=== PATIENT | female | born 1945 | race Caucasian/White ===

== ENCOUNTER 2020-11-09 20:06 | Inpatient (IN) | payer MEDICARE, SELFPAY ==
--- NOTE | ~2020-11-09 | CT_ITS ---
EXAMINATION: CT ABDOMEN AND PELVIS WITHOUT CONTRAST CLINICAL INFORMATION: Right lower quadrant pain. Distended. Rule out diverticulitis, small bowel obstruction. History of appendectomy, VANESSA, left nephrectomy COMPARISON: None TECHNIQUE: Multidetector volumetric imaging was performed from the superior aspect of the liver through the pubic symphysis. Sagittal and coronal reformatted images were obtained on the technologist's workstation. This CT examination was performed using dose optimization techniques as appropriate, variously including the following: *Automated exposure control *Adjustment of mA and/or kV according to patient size (this includes techniques or standardized protocols for targeted exams where dose is matched to indication/reason for exam; i.e. extremities or head) *Use of iterative reconstruction technique DLP: 361 mGy-cm FINDINGS: LUNG BASES: Minimal atelectasis. No acute findings. LIVER, GALLBLADDER, AND BILIARY TREE: A 1.7 cm water density (5 Hounsfield units) cyst is present within the posteromedial aspect of the hepatic segment 7. There is a 0.9 cm low-density (12 ounces) cysts within segment 4A . A 1.7 cm cystic lesion with lobular margins is present within segment 5 with a density of 10 Hounsfield units, likely a cyst or hemangioma. Liver is normal in size. Contour is normal. The gallbladder is unremarkable with no evidence of radiopaque gallstones, gallbladder wall thickening, or obvious pericholecystic inflammatory changes. PANCREAS: Unremarkable. SPLEEN: Unremarkable. ADRENAL GLANDS: Left adrenal gland appears surgically absent. Right adrenal gland is normal KIDNEYS AND URETERS: Left kidney is surgically absent. There is moderate right-sided hydronephrosis and hydroureter with significant perinephric and proximal periureteral fat stranding. A 3 mm calculus is present at the right UVJ, producing this obstructive uropathy. No additional renal or ureteral calculi are identified. Right kidney is normal in size and normal cortical thickness. There is a 1 cm density (50 Hounsfield unit) cystic focus in the lateral cortex of the right lower renal pole. No additional renal lesions are identified. BLADDER: Empty. No wall thickening. GASTROINTESTINAL TRACT: Small sliding-type hiatal hernia. Stomach, small bowel, and colon are normal in caliber. There is mild to moderate sigmoid diverticulosis. No evidence of acute diverticulitis. No intraperitoneal free fluid or free air. ABDOMINAL WALL: No significant hernia is appreciated. LYMPH NODES: Normal. VASCULAR: Atherosclerotic calcifications are present in the abdominal aorta and iliac arteries. No aneurysmal dilatation. PELVIC VISCERA: Uterus is surgically absent. There is a 1.2 cm water density cyst at the left ovary. OSSEOUS STRUCTURES: There is grade 1 anterolisthesis of L4 on L5 with mild to moderate degenerative disc disease marked facet arthropathy. Mild to moderate multilevel degenerative disc disease present throughout the lumbar spine, most notably at L2-L3. No acute osseous findings in the hips and SI joints. CT/CT abdomen pelvis wo con IMPRESSION: 1. A 3 mm calculus at the right UVJ produces moderate right obstructive uropathy with significant perinephric stranding. 2. A 1 cm intermediate density cystic focus at the right kidney. Recommend follow-up renal protocol MRI with and without contrast on a nonemergent basis. Cystic lesions within the liver could also be assessed at that time. 3. A 1.3 cm left ovarian cyst, abnormal in the postmenopausal setting. Follow-up pelvic ultrasound is advised on a nonemergent basis 4. Small sliding-type hiatal hernia.
--- NOTE | ~2020-11-09 | CT_ITS ---
EXAMINATION: CT ABDOMEN AND PELVIS WITHOUT CONTRAST CLINICAL INFORMATION: Kidney stones. Right-sided abdominal pain COMPARISON: November 09, 2020 TECHNIQUE: Multidetector volumetric imaging was performed from the superior aspect of the liver through the pubic symphysis. Sagittal and coronal reformatted images were obtained on the technologist's workstation. This CT examination was performed using dose optimization techniques as appropriate, variously including the following: *Automated exposure control *Adjustment of mA and/or kV according to patient size (this includes techniques or standardized protocols for targeted exams where dose is matched to indication/reason for exam; i.e. extremities or head) *Use of iterative reconstruction technique DLP: 394 mGy-cm FINDINGS: LUNG BASES: The visualized lung bases are unremarkable. Mild prominence right lower lobe bronchi. No pleural effusion. Small amount of pericardial fluid. LIVER, GALLBLADDER, AND BILIARY TREE: There are multiple low density hepatic lesions likely representing cysts. No definite focal solid mass or intrahepatic bile duct dilatation is seen. The gallbladder is unremarkable with no evidence of radiopaque gallstones, gallbladder wall thickening, or obvious pericholecystic inflammatory changes. Gallbladder is distended. PANCREAS: Unremarkable. SPLEEN: Unremarkable. There is a small amount of fluid seen adjacent to the medial aspect of the spleen. ADRENAL GLANDS: The right adrenal gland appears unremarkable. The left adrenal gland is not visualized and is likely surgically removed. KIDNEYS AND URETERS: Status post left nephrectomy. There is prominence of the right upper collecting system with improvement from previously noted hydronephrosis. There is a large amount of right perinephric fat stranding 1.2 cm high density circumscribed lesion lower pole of the right kidney again seen and likely represents a hyperdense cyst. Renal protocol MRI would help in further evaluation of this finding. The right ureter remains prominent. Previously noted renal vesical junction calculus is no longer identified within the ureter. There is a 3 mm bladder calculus seen dependently and is likely related to the calculus passing into the bladder. BLADDER: Castaneda catheter in place. 3 mm calculus seen dependently. There is some gas likely iatrogenic. GASTROINTESTINAL TRACT: No dilated loops of large or small bowel are evident. No free air. There is a small amount of free fluid present about the pelvis. There is diverticulosis of the sigmoid colon without evidence of acute diverticulitis. Appendix is not identified. ABDOMINAL WALL: No significant hernia is appreciated. LYMPH NODES: No lymphadenopathy seen. VASCULAR: Unremarkable. PELVIC VISCERA: No suspicious mass. Small amount of free fluid. OSSEOUS STRUCTURES: No suspicious destructive bony lesion identified. There is mild degenerative disc disease present. There is a grade 1 spondylolisthesis L4-L5. CT/CT abdomen pelvis wo con IMPRESSION: Passage of 3 mm right ureterovesical junction calculus since prior study with the calculus seen dependently within the urinary bladder. Improving right hydronephrosis. Large amount of perinephric fat stranding as well as small amount of free fluid. Hepatic cyst. High density right renal lesion likely representing a hyperdense cyst for which ultrasound or MRI would be of help in further evaluation. Status post left nephrectomy.
[2020-11-09 20:13] VITALS: BP 122/88; PULSE 76; RESP 22; TEMP 36.4; O2SAT 100; BMI 24.9
[2020-11-09 20:30] LABS: MANUAL DIFF FLAG NO
[2020-11-09 20:32] LABS: Basophils Percent Auto 0.2 % (0-2); Hematocrit 39.4 % (37-47); Hemoglobin 13.7 g/dl (12.0-16.0); Imm Gran Abs Auto 0.07 X10*3/uL (0.00-0.03); Imm Gran Pct Auto 0.5 % (0.0-0.4); Lymphocytes Absolute Auto 1.2 X10*3/uL (1.2-4.9); Lymphocytes Percent Auto 9.1 % (20-40); Mean Corpuscular HGB Conc 34.8 g/dl (31.0-35.0); Mean Corpuscular Hemoglobin 29.9 pg (27.0-33.0); Mean Platelet Volume 11.5 fL (9.4-12.3); Monocytes Absolute Auto 0.4 X10*3/uL (0.1-1.2); Monocytes Percent Auto 2.8 % (2-11); Neutrophils Absolute Auto 11.2 X10*3/uL (2.0-8.3); Neutrophils Percent Auto 87.4 % (45-73); Platelet Count 305 X10*3/uL (160-400); Red Blood Count 4.58 X10*6/uL (4.20-5.50); Red Cell Distribution Width 11.9 % (11.0-16.0); White Blood Count 12.8 X10*3/uL (4.8-10.8)
[2020-11-09 21:04] LABS: Alanine Aminotransferase 20 U/L (0-31); Albumin Level 4.8 g/dL (3.5-5.0); Alkaline Phosphatase 112 U/L (39-117); Anion Gap 21 (12-20); Aspartate Amino Transferase 29 U/L (5-31); Bilirubin Direct 0.3 mg/dL (0.0-0.5); Blood Urea Nitrogen 24 mg/dL (9-16); Calcium 10.1 mg/dL (8.4-10.2); Carbon Dioxide 19 mmol/L (22-29); Chloride 102 mmol/L (96-108); Creatinine Clr Calc Pharmacy 21.9; Estimated Glomerular Filt Rate 29; Glucose Random 132 mg/dL (60-115); Potassium 3.8 mmol/L (3.3-5.1); Sodium 138 mmol/L (135-145); Total Protein 7.4 g/dL (6.5-8.0)
--- NOTE | 2020-11-09 21:18 | ED_ITS ---
HPI - General Adult General Chief complaint: Abdominal Pain Stated complaint: Abdominal pain Time Seen by Provider: 11/09/20 20:40 Source: patient Mode of arrival: ambulatory Limitations: no limitations History of Present Illness HPI narrative: 75-year-old female who presents emergency department for evaluation of abdominal pain, nausea and vomiting. Patient states that she had a sudden onset abdominal pain at 3:00 a.m. on the day of arrival. She states the pain has been a constant, sharp pain which is 10/10 at its worst. The pain is worse with movement. The pain is associated with nausea and the patient has vomited 3 or 4 times. She has also noticed a change in her bowel movements. She states she has had very small ball like bowel movements and pencil thin bowel movements. She denied fever but states that she has been feeling hot, cold and having chills at home. She took Tylenol with no relief of her pain. She does feel bloated. Past surgical history significant for appendectomy, hysterectomy with 1 ovary removed, left kidney removed secondary to cyst, left breast lumpectomy secondary to breast cancer. The patient has not had a COVID-19 infection. She completed her 2 doses of the 5s ir COVID-19 vaccine with the 2nd dose being on September 20, 2020. Related Data Home Medications Medication Instructions Recorded Confirmed amlodipine 1 tab PO DAILY 11/09/20 11/09/20 atorvastatin 1 tab PO DAILY 11/09/20 11/09/20 duloxetine 1 cap PO DAILY 11/09/20 11/09/20 fluticasone propionate [Flovent 2 puff INHALATION BID 11/09/20 11/09/20 HFA] Allergies Allergy/AdvReac Type Severity Reaction Status Date / Time ibuprofen AdvReac Palpitation Verified 11/09/20 20:13 s Review of Systems Review of Systems: Yes all other systems are reviewed and are negative [facility] Past Medical History Medical History Asthma Breast cancer COPD (chronic obstructive pulmonary disease) HTN (hypertension) IBS (irritable bowel syndrome) Venous malformation Surgical History H/O left nephrectomy H/O: hysterectomy History of appendectomy Social History Social History Alcohol intake: never Smoked in Last 30 Days: No Use of substances other than those prescribed or required for medical reasons: No Advance Directives: No Advance Directives Information Provided: Yes Physical Exam Vital Signs: Vital Signs: Last Vital Signs Temp 97.7 F 11/09/20 22:11 Pulse 79 11/09/20 22:11 Resp 24 H 11/09/20 22:11 BP 169/78 H 11/09/20 22:11 Pulse Ox 99 11/09/20 22:11 Body Mass Index 24.9 Const: General: cooperative and in distress (Secondary to abdominal pain) Orientation/consciousness: oriented to person and oriented to place Limi tations: no limitations HENMT: Head: Yes normal to inspection, Yes normocephalic and Yes atraumatic Ears: external ears normal General nose exam: Normal external nose present Face and sinus: Yes normal facial exam Mouth: Normal oral and palatal mucosa present Throat: Yes posterior oropharynx normal Eyes: Periorbital: periorbital findings normal Eyelids: Yes eyelids normal Conjunctivae: conjunctivae normal Sclerae: sclerae normal Corneas: corneas normal Pupils: Equal, round and reactive pupils present Direct Ophthalmoscopy: normal light reflex Neck: Neck: Yes full ROM, Yes no lymphadenopathy, Yes no meningeal signs, Yes trachea midline and Yes supple Chest: Chest palpation & inspection: normal inspection of the chest and normal palpation of entire chest wall Resp: Effort & Inspection: normal respiratory effort and able to speak in complete sentences Auscultation: clear to auscultation bilaterally Cardio: Rate: regular rate Rhythm: regular rhythm Heart sounds: S1 normal heart sound present, S2 normal heart sound present and no murmurs GI: Inspection: Yes distended (Moderate) Palpation (GI): Soft to palpation, Tenderness to palpation present (GI) in the RLQ (Moderate), Guarding due to palpation present (GI) in the RLQ (Moderate), not rigid and No hepatosplenomegaly present Auscultation: Hypoactive bowel sounds present : General: Yes CVA tenderness on the right (Moderate) Back/Spine/Pelvis: Back: CVA tenderness Cervical Spine: normal cervical lordosis Thoracic/Lumbar Spine: thoracic and lumbar spine normal to inspection Skin: Lesions: no lesions Rashes: no rashes Wounds: no wounds Neuro: General: oriented to person, oriented to place and no meningeal signs Cranial nerves: Yes CN's II-XII intact bilaterally and Yes Equal, round and reactive pupils present Cognition (Neuro): normal cognition Motor exam (neuro): 5/5 motor strength present throughout Extrem: General: Yes normal to inspection and Yes full ROM Psych: Appearance: well kempt Mental Status: mental status grossly normal Speech and movement: Normal speech and movement present Affect: normal affect Attitude: cooperative Thought process: Normal thought process present Thought content: Normal thought content present Course Course Course Narrative: 75-year-old female who presents emergency department for evaluation of right lower quadrant abdominal pain associated with nausea, vomiting, change in stool caliber/size since 3:00 a.m. on the day of arrival. The patient's physical examination did reveal that she was in distress secondary to her abdominal pain. Her vital signs revealed an elevated respiratory rate of 22 suspect that this is secondary to her pain. Abdominal exam did reveal right lower quadrant tenderness with guarding, right CVA tenderness and abdominal distension. Patient's past surgical history is significant for appendectomy, hysterectomy with possibly 1 ovary removed and left nephrectomy. Differential includes but is not limited to bowel perforation, diverticulitis, small-bowel obstruction, pyelonephritis. I ordered a laboratory evaluation on the patient and a CT scan of the patient's abdomen pelvis without IV contrast secondary to her nephrectomy. She was ordered to get normal saline x1 L, morphine 4 mg IV for pain and Zofran 4 mg IV for her nausea and vomiting. 1131: The patient required a 2nd dose of morphine 4 mg IV and Dilaudid 0.5 mg IV to help control her pain. The patient's CT scan of the abdomen pelvis without IV contrast revealed a 3 mm right ureteral stone with hydronephrosis. Laboratory evaluation revealed an elevated BUN of 24 with an elevated creatinine of 1.71 with a GFR of 29. I have no baseline renal function on the patient. Patient did [place] [id number]. I did discuss the patient's presentation with the covering urologist, who recommended that the patient stay NPO after midnight and that the patient be admitted to the hospitalist service. 1138: I discuss the patient's presentation with the covering hospitalist, who will admit the patient to the hospital service for further management. The patient was able to give us a urine sample, I will obtain a bladder scan to make sure that the patient is not retaining urine. Medical Decision Making Lab Data Result diagrams: 11/09/20 20:25 11/09/20 20:25 Labs: Lab Results 11/09/20 11/09/20 11/09/20 Range/Units 20:25 20:25 20:25 WBC 12.8 H (4.8-10.8) X10*3/uL RBC 4.58 (4.20-5.50) X10*6/uL Hgb 13.7 (12.0-16.0) g/dl Hct 39.4 (37-47) % MCV 86.0 (80-98) fL MCH 29.9 (27.0-33.0) pg MCHC 34.8 (31.0-35.0) g/dl RDW 11.9 (11.0-16.0) % Plt Count 305 (160-400) X10*3/uL MPV 11.5 (9.4-12.3) fL Immature Gran % (Auto) 0.5 H (0.0-0.4) % Neut % (Auto) 87.4 H (45-73) % Lymph % (Auto) 9.1 L (20-40) % [place] % (Auto) 2.8 (2-11) % Eos % (Auto) 0.0 (0-4) % Baso % (Auto) 0.2 (0-2) % Lymph # (Auto) 1.2 (1.2-4.9) X10*3/uL [place] # (Auto) 0.4 (0.1-1.2) X10*3/uL Eos # (Auto) 0.0 (0.0-0.4) X10*3/uL Baso # (Auto) 0.0 (0.0-0.2) X10*3/uL Abs Immat Gran (auto) 0.07 H (0.00-0.03) X10*3/uL Absolute Neuts (auto) 11.2 H (2.0-8.3) X10*3/uL Absolute Nucleated RBC 0.000 (0.0-0.012) X10*3/uL Nucleated RBC % (auto) 0.0 (0.0-0.2) /100WBC Hold Blue Top SEE NOTE Sodium 138 (135-145) mmol/L Potassium 3.8 (3.3-5.1) mmol/L Chloride 102 (96-108) mmol/L Carbon Dioxide 19 L (22-29) mmol/L Anion Gap 21 H (12-20) BUN 24 H (9-16) mg/dL Creatinine 1.71 H (0.5-1.4) mg/dL Estim Creat Clear Calc 21.9 Estimated GFR 29 Random Glucose 132 H (60-115) mg/dL Calcium 10.1 (8.4-10.2) mg/dL Total Bilirubin 1.0 (0.0-1.0) mg/dL Direct Bilirubin 0.3 (0.0-0.5) mg/dL AST 29 (5-31) U/L ALT 20 (0-31) U/L Alkaline Phosphatase 112 (39-117) U/L Total Protein 7.4 (6.5-8.0) g/dL Albumin 4.8 (3.5-5.0) g/dL Lipase 21 (8-78) U/L COVID-19 ([facility]PH) (Negative) COVID-19 Clin Com 11/09/20 Range/Units 22:51 WBC (4.8-10.8) X10*3/uL RBC (4.20-5.50) X10*6/uL Hgb (12.0-16.0) g/dl Hct (37-47) % MCV (80-98) fL MCH (27.0-33.0) pg MCHC (31.0-35.0) g/dl RDW (11.0-16.0) % Plt Count (160-400) X10*3/uL MPV (9.4-12.3) fL Immature Gran % (Auto) (0.0-0.4) % Neut % (Auto) (45-73) % Lymph % (Auto) (20-40) % [place] % (Auto) (2-11) % Eos % (Auto) (0-4) % Baso % (Auto) (0-2) % Lymph # (Auto) (1.2-4.9) X10*3/uL [place] # (Auto) (0.1-1.2) X10*3/uL Eos # (Auto) (0.0-0.4) X10*3/uL Baso # (Auto) (0.0-0.2) X10*3/uL Abs Immat Gran (auto) (0.00-0.03) X10*3/uL Absolute Neuts (auto) (2.0-8.3) X10*3/uL Absolute Nucleated RBC (0.0-0.012) X10*3/uL Nucleated RBC % (auto) (0.0-0.2) /100WBC Hold Blue Top Sodium (135-145) mmol/L Potassium (3.3-5.1) mmol/L Chloride (96-108) mmol/L Carbon Dioxide (22-29) mmol/L Anion Gap (12-20) BUN (9-16) mg/dL Creatinine (0.5-1.4) mg/dL Estim Creat Clear Calc Estimated GFR Random Glucose (60-115) mg/dL Calcium (8.4-10.2) mg/dL Total Bilirubin (0.0-1.0) mg/dL Direct Bilirubin (0.0-0.5) mg/dL AST (5-31) U/L ALT (0-31) U/L Alkaline Phosphatase (39-117) U/L Total Protein (6.5-8.0) g/dL Albumin (3.5-5.0) g/dL Lipase (8-78) U/L COVID-19 ([facility]ALPH) Negative (Negative) COVID-19 Clin Com See Note Imaging Data CT abdomen pelvis without IV contrast: Radiologist's impression: EXAMINATION: CT ABDOMEN AND PELVIS WITHOUT CONTRAST CLINICAL INFORMATION: Right lower quadrant pain. Distended. Rule out diverticulitis, small bowel obstruction. History of appendectomy, VANESSA, left nephrectomy COMPARISON: None TECHNIQUE: Multidetector volumetric imaging was performed from the superior aspect of the liver through the pubic symphysis. Sagittal and coronal reformatted images were obtained on the technologist's workstation. This CT examination was performed using dose optimization techniques as appropriate, variously including the following: *Automated exposure control *Adjustment of mA and/or kV according to patient size (this includes techniques or standardized protocols for targeted exams where dose is matched to indication/reason for exam; i.e. extremities or head) *Use of iterative reconstruction technique DLP: 361 mGy-cm FINDINGS: LUNG BASES: Minimal atelectasis. No acute findings. LIVER, GALLBLADDER, AND BILIARY TREE: A 1.7 cm water density (5 Hounsfield units) cyst is present within the posteromedial aspect of the hepatic segment 7. There is a 0.9 cm low-density (12 ounces) cysts within segment 4A . A 1.7 cm cystic lesion with lobular margins is present within segment 5 with a density of 10 Hounsfield units, likely a cyst or hemangioma. Liver is normal in size. Contour is normal. The gallbladder is unremarkable with no evidence of radiopaque gallstones, gallbladder wall thickening, or obvious pericholecystic inflammatory changes. PANCREAS: Unremarkable. SPLEEN: Unremarkable. ADRENAL GLANDS: Left adrenal gland appears surgically absent. Right adrenal gland is normal KIDNEYS AND URETERS: Left kidney is surgically absent. There is moderate right-sided hydronephrosis and hydroureter with significant perinephric and proximal periureteral fat stranding. A 3 mm calculus is present at the right UVJ, producing this obstructive uropathy. No additional renal or ureteral calculi are identified. Right kidney is normal in size and normal cortical thickness. There is a 1 cm density (50 Hounsfield unit) cystic focus in the lateral cortex of the right lower renal pole. No additional renal lesions are identified. BLADDER: Empty. No wall thickening. GASTROINTESTINAL TRACT: Small sliding-type hiatal hernia. Stomach, small bowel, and colon are normal in caliber. There is mild to moderate sigmoid diverticulosis. No evidence of acute diverticulitis. No intraperitoneal free fluid or free air. ABDOMINAL WALL: No significant hernia is appreciated. LYMPH NODES: Normal. VASCULAR: Atherosclerotic calcifications are present in the abdominal aorta and iliac arteries. No aneurysmal dilatation. PELVIC VISCERA: Uterus is surgically absent. There is a 1.2 cm water density cyst at the left ovary. OSSEOUS STRUCTURES: There is grade 1 anterolisthesis of L4 on L5 with mild to moderate degenerative disc disease marked facet arthropathy. Mild to moderate multilevel degenerative disc disease present throughout the lumbar spine, most notably at L2-L3. No acute osseous findings in the hips and SI joints. CT/CT abdomen pelvis wo con IMPRESSION: 1. A 3 mm calculus at the right UVJ produces moderate right obstructive uropathy with significant perinephric stranding. 2. A 1 cm intermediate density cystic focus at the right kidney. Recommend follow-up renal protocol MRI with and without contrast on a nonemergent basis. Cystic lesions within the liver could also be assessed at that time. 3. A 1.3 cm left ovarian cyst, abnormal in the postmenopausal setting. Follow-up pelvic ultrasound is advised on a nonemergent basis 4. Small sliding-type hiatal hernia. Dictated By:BRENNON PEARSON MDSigned By:<Electronically signed by BRENNON PEARSON MD in [place]>11/09/202204 DD/ 23TD/TT: [employer] Firer/Fireman: SHELBY Discharge Plan Discharge Clinical Impression: Right distal ureteral calculus, Renal colic on right side, Acute kidney injury, Hydronephrosis, right Patient Disposition: Admitted As Inpatient Prescriptions: No Action atorvastatin 10 mg tablet 1 tab PO DAILY RF: 0 amlodipine 10 mg tablet 1 tab PO DAILY RF: 0 Flovent HFA 220 mcg/actuation HFA aerosol inhaler 2 puff inhalation BID RF: 0 duloxetine 30 mg capsule,delayed release(DR/EC) 1 cap PO DAILY RF: 0
[2020-11-09] MEDS: Morphine Sulfate 4 MG/ML CARTRIDGE IVPUSH ×2 (21:29→22:14)
[2020-11-09] MEDS: ondansetron HCL 4 MG/2 ML VIAL IVPUSH (21:29)
[2020-11-09] MEDS: 0.9 % Sodium Chloride 1,000 ML 999 ML IV (21:30)
[2020-11-09 21:48] LABS: Lipase 21 U/L (8-78)
[2020-11-09 22:11] VITALS: BP 169/78; PULSE 79; RESP 24; TEMP 36.5; O2SAT 99
[2020-11-09] MEDS: HYDROmorphone HCl 0.5 MG/0.5 ML SYRINGE IVPUSH (22:49)
[2020-11-09 23:14] LABS: COVID-19 Test Negative (Negative)
[2020-11-09 23:30] LABS: Glucose Urine UA NEG (NEG); Leukocyte Esterase Urine 2+ (NEG); Nitrite Urine NEG (NEG); Specific Gravity - Urine <= 1.005 (1.005-1.025); UACC Culture Trigger YES; Urine Blood 3+ (NEG); Urine Ketones NEG (NEG); Urine Protein NEG (NEG-TRACE)
[2020-11-09 23:39] LABS: Appearance Urine CLEAR; Color Urine STRAW
--- NOTE | 2020-11-09 23:41 | PC.NURSE ---
4ml in bladder. per hospitalist at bedside: place zendejas.
[2020-11-09 23:49] LABS: RBC Urine 0-2 /HPF (0); Squamous Epithelial Cell Urine TRACE /LPF
[2020-11-09 23:50] LABS: WBC Clumps Urine NOTED
--- NOTE | 2020-11-09 23:53 | PC.NURSE ---
Md cruz verbal ordered zendejas placement. 18g in urethra with urine return. pt tolerated well.
[2020-11-09 23:54] VITALS: BP 152/75; PULSE 90; RESP 18; TEMP 37; O2SAT 95
--- NOTE | 2020-11-09 23:54 | P.HPHOSP_ITS ---
History of Present Illness Date of Service: 11/09/20 Chief Complaint: abd pain 75-year-old female with past medical history of COPD, HTN, asthma, breast cancer status post lumpectomy, left nephrectomy secondary to cyst that were thought to be tumors, rectal out to be benign, presents to the hospital with complaints of right lower quadrant abdominal pain radiating to the left flank. Patient reports that her symptoms started 1 day prior. Pain is 10/10, associated with nausea, vomiting, decreased oral intake, she has urgency, dysuria, and the feeling that she cannot empty her bladder. Denies any fever or chills. Denies history of any kidney stone, he denies any chest pain, shortness of breath, no diarrhea or constipation although has history of IBS. Has no lower extremity edema. No numbness tingling or weakness. On arrival vitals are significant for temp of 97.5?, pulse rate of 76, respiratory rate of 22, blood pressure of 122/88, satting 100% on room air Labs are significant for WBC count of 12.8, hemoglobin 13.7, BUN of 24, creatinine of 1.7 with no previous baseline to compare, UA that is positive for leukocyte esterase. CT of the abdomen/pelvis showed 3 mm calculus at the right UVJ which has produced moderate right obstructive uropathy with significant perinephric stranding. A 1 cm intermediate density cystic focus at the right kidney. Recommended follow-up with renal protocol MRI with and without contrast. Of 1.3 cm left ovarian cyst, abnormal in a postmenopausal setting pulse follow-up with pelvic ultrasound is recommended Liver imaging also showing multiple liver cyst Urology was consulted by ED and recommended admission to Medicine, NPO and will assess patient in the morning Review of Systems Review of Systems: Yes all other systems are reviewed and are negative [facility] Medical History Asthma Breast cancer COPD (chronic obstructive pulmonary disease) HTN (hypertension) IBS (irritable bowel syndrome) Venous malformation Surgical History H/O left nephrectomy H/O: hysterectomy History of appendectomy Social History Household Members: Spouse Housing: House Do you presently have visiting nurse or other home services: No Alcohol intake: never Smoking Status: Never smoker Smoked in Last 30 Days: No Second Hand Smoke Exposure: No Use of substances other than those prescribed or required for medical reasons: No Have you been hit, kicked, punched, or otherwise hurt by someone within the past year? If so, by whom?: No Do you feel safe in your current relationship?: Yes Is there a partner from a previous relationship who is making you feel unsafe now?: No Are you made to feel afraid or neglected: No Advance Directives: No Advance Directives Information Provided: Yes Advance Directives on File: No Do you have thoughts of harming others: None Do you have a plan to hurt others: No Plan Recently lost weight without trying: No Meds Allergies Allergy/AdvReac Type Severity Reaction Status Date / Time ibuprofen AdvReac Palpitation Verified 11/09/20 20:13 s Home Medications Medication Instructions Recorded Confirmed Last Taken Type amlodipine 1 tab PO DAILY 11/09/20 11/09/20 Unknown History atorvastatin 1 tab PO DAILY 11/09/20 11/09/20 Unknown History duloxetine 1 cap PO DAILY 11/09/20 11/09/20 Unknown History fluticasone propionate [Flovent 2 puff INHALATION BID 11/09/20 11/09/20 Unknown History HFA] Physical Exam Vital Signs and Narrative: Vital Signs: Last Vital Signs Temp 97.7 F 11/09/20 22:11 Pulse 79 11/09/20 22:11 Resp 24 H 11/09/20 22:11 BP 169/78 H 11/09/20 22:11 Pulse Ox 99 11/09/20 22:11 Body Mass Index 24.9 Const: General: cooperative and no acute distress Orientation/consciousness: patient oriented x3 Eyes: General: appearance normal, both eyes and all related structures Resp: Effort & Inspection: normal respiratory effort and able to speak in complete sentences Cardio: Rate: regular rate Rhythm: regular rhythm GI: Other: RLQ tenderness, no rebound, no guarding Palpation (GI): Soft to palpation Auscultation: normal bowel sounds : Other: right CVA tenderness Skin: General skin exam: no rashes or lesions noted Neuro: General: patient oriented x3 Cognition (Neuro): normal cognition Extrem: General: Yes normal to inspection and Yes no pedal edema Results Labs CBC and Chem 7: 11/09/20 20:25 11/09/20 20:25 Labs: Laboratory Results - last 24 hr 11/09/20 11/09/20 11/09/20 20:25 20:25 20:25 MCV 86.0 MCH 29.9 MCHC 34.8 RDW 11.9 Plt Count 305 MPV 11.5 Immature Gran % (Auto) 0.5 H Neut % (Auto) 87.4 H Lymph % (Auto) 9.1 L [place] % (Auto) 2.8 Eos % (Auto) 0.0 Baso % (Auto) 0.2 Lymph # (Auto) 1.2 [place] # (Auto) 0.4 Eos # (Auto) 0.0 Baso # (Auto) 0.0 Abs Immat Gran (auto) 0.07 H Absolute Neuts (auto) 11.2 H Absolute Nucleated RBC 0.000 Nucleated RBC % (auto) 0.0 Hold Blue Top SEE NOTE Anion Gap 21 H Estim Creat Clear Calc 21.9 Estimated GFR 29 Random Glucose 132 H Calcium 10.1 Total Bilirubin 1.0 Direct Bilirubin 0.3 AST 29 ALT 20 Alkaline Phosphatase 112 Total Protein 7.4 Albumin 4.8 Lipase 21 Urine Color Urine Appearance Urine pH Ur Specific [place] Urine Protein Urine Glucose (UA) Urine Ketones Urine Blood Urine Nitrite Ur Leukocyte Esterase Urine RBC Urine WBC Urine WBC Clumps Ur Squamous Epith Cells Urine Bacteria COVID-19 ([facility]) COVID-19 Clin Com 11/09/20 11/09/20 22:51 23:20 MCV MCH MCHC RDW Plt Count MPV Immature Gran % (Auto) Neut % (Auto) Lymph % (Auto) [place] % (Auto) Eos % (Auto) Baso % (Auto) Lymph # (Auto) [place] # (Auto) Eos # (Auto) Baso # (Auto) Abs Immat Gran (auto) Absolute Neuts (auto) Absolute Nucleated RBC Nucleated RBC % (auto) Hold Blue Top Anion Gap Estim Creat Clear Calc Estimated GFR Random Glucose Calcium Total Bilirubin Direct Bilirubin AST ALT Alkaline Phosphatase Total Protein Albumin Lipase Urine Color STRAW Urine Appearance CLEAR Urine pH 6.0 Ur Specific [place] <= 1.005 Urine Protein NEG Urine Glucose (UA) NEG Urine Ketones NEG Urine Blood 3+ H Urine Nitrite NEG Ur Leukocyte Esterase 2+ H Urine RBC 0-2 Urine WBC 1-4 Urine WBC Clumps NOTED Ur Squamous Epith Cells TRACE Urine Bacteria NONE COVID-19 ([facility]) Negative COVID-19 Clin Com See Note Imaging Radiologist's Impressions: Impressions Abdomen/Pelvis CT 11/09/20 21:24 IMPRESSION: 1. A 3 mm calculus at the right UVJ produces moderate right obstructive uropathy with significant perinephric stranding. 2. A 1 cm intermediate density cystic focus at the right kidney. Recommend follow-up renal protocol MRI with and without contrast on a nonemergent basis. Cystic lesions within the liver could also be assessed at that time. 3. A 1.3 cm left ovarian cyst, abnormal in the postmenopausal setting. Follow-up pelvic ultrasound is advised on a nonemergent basis 4. Small sliding-type hiatal hernia. Assessment and Plan (1) Right distal ureteral calculus: Status: Acute (2) Acute kidney injury: Status: Acute (3) Pyelonephritis: Status: Acute this is a 75 YO f with hx of left nephrectomy who presents to the hospital with pyelonephriotis and obstructing renal calculus # Pyelonephritis - UA +ve, CVA tenderness - CT abdomen reveals an obstructive UVJ calculus - urology consult and informed - start IV antibiotics - follow culture # obstructing renal calculus - at the UVJ - urology consulted and patient will be kept NPO for possible intervention - pain control # WAYLON - has mild WAYLON - will start her on IV fluid - follow BMP # hypertension - elevated - continue amlodipine # HLD - continue atorvastatin # multiple abnormal cysts found on the abdomen pelvic CT- patient will need further follow with PCP upon discharge for further evaluation of these findings
[2020-11-10] VITALS (9 sets, daily range): BP systolic 118–159; BP diastolic 58–72; PULSE 67–80; RESP 14–20; TEMP 36.6–37.2; O2SAT 95–98
[2020-11-10] MEDS: HYDROmorphone HCl 0.5 MG/0.5 ML SYRINGE IVPUSH
[2020-11-10] MEDS: 0.9 % Sodium Chloride Flush 3 ML SYRINGE IVFLUSH ×2 (00:52→07:24)
[2020-11-10] MEDS: Lactated Ringers 1,000 ML 80 ML IVCONT ×3 (00:53→23:52)
--- NOTE | 2020-11-10 01:01 | PC.NURSE ---
Attempted to call report to cash KAY. RN unavailable/refused. Will attempt to call back in 15 minutes.
--- NOTE | 2020-11-10 01:30 | PC.NURSE ---
Report received at 0125. First time I was aware of call for report, did not refuse previous call as documented. I was unavailable due to being in patient room.
[2020-11-10] MEDS: cefTRIAXone sodium 1 GM in 0.9 % Sodium Chloride 50 ML IV ×2 (02:35→23:46)
[2020-11-10 06:39] LABS: MANUAL DIFF FLAG NO
[2020-11-10 06:51] LABS: Basophils Percent Auto 0.2 % (0-2); Eosinophils Percent Auto 0.1 % (0-4); Hematocrit 34.3 % (37-47); Hemoglobin 11.5 g/dl (12.0-16.0); Imm Gran Abs Auto 0.05 X10*3/uL (0.00-0.03); Imm Gran Pct Auto 0.4 % (0.0-0.4); Lymphocytes Absolute Auto 1.7 X10*3/uL (1.2-4.9); Lymphocytes Percent Auto 14.3 % (20-40); Mean Corpuscular HGB Conc 33.5 g/dl (31.0-35.0); Mean Corpuscular Hemoglobin 29.6 pg (27.0-33.0); Mean Corpuscular Volume 88.4 fL (80-98); Mean Platelet Volume 12.1 fL (9.4-12.3); Monocytes Absolute Auto 1.1 X10*3/uL (0.1-1.2); Monocytes Percent Auto 8.7 % (2-11); Neutrophils Absolute Auto 9.3 X10*3/uL (2.0-8.3); Neutrophils Percent Auto 76.3 % (45-73); Platelet Count 272 X10*3/uL (160-400); Red Blood Count 3.88 X10*6/uL (4.20-5.50); White Blood Count 12.1 X10*3/uL (4.8-10.8)
[2020-11-10] MEDS: Fluticasone Propionate 250 MCG BLST.W.DEV 1 PUFF INHALE ×2 (07:13→20:29)
[2020-11-10 07:18] LABS: Blood Urea Nitrogen 21 mg/dL (9-16); Creatinine Clr Calc Pharmacy 25.1; Estimated Glomerular Filt Rate 34; Glucose Random 104 mg/dL (60-115)
[2020-11-10] MEDS: Acetaminophen 325 MG TABLET 650 MG PO ×2 (07:26→23:50)
[2020-11-10 07:27] LABS: Anion Gap 13 (12-20); Calcium 8.5 mg/dL (8.4-10.2); Carbon Dioxide 25 mmol/L (22-29); Chloride 108 mmol/L (96-108); Potassium 4.2 mmol/L (3.3-5.1); Sodium 142 mmol/L (135-145)
--- NOTE | 2020-11-10 08:39 | MHC.CM.PN ---
CM met with Patient at bedside and addressed IMM, providing Patient with the original and placing a copy on the chart. Patient lives in a house with her and she is functionally independent. Home is the goal for dc and CM has initiated and will follow for dc planning.
--- NOTE | 2020-11-10 10:18 | P.PNIM_ITS ---
Subjective Subjective Date of Service: 11/10/20 Interval History: Seen in f/u for WAYLON, right Pyelonephritis, feels better still has some residual pain in the right flank area Review of Systems Gen: no fever Resp: no sob, no cough CV: no chest, no QURESHI, no leg edema GI/: No n/v, right flank pain Neuro: No confusion Physical Exam Vital Signs: Vital Signs: Last Vital Signs Temp 97.9 F 11/10/20 07:16 Pulse 71 11/10/20 07:16 Resp 20 11/10/20 07:16 BP 142/68 H 11/10/20 07:16 Pulse Ox 96 11/10/20 07:16 Body Mass Index 24.9 Const: Other: General: AO X 3, no acute distress Resp: CTA bilateral CVS: S1,S2,RRR GI/: +BS, NT, no distention, mild right flank tenderness Skin: No rash Neuro: motor grossly intact Psych: appropriate affect Objective Data Current Medications Generic Name Dose Route Start Last Admin Trade Name Freq PRN Reason Stop Dose Admin Acetaminophen 650 mg 11/10/20 00:43 11/10/20 07:26 Acetaminophen 325 Mg Tablet PO 650 mg Q6H PRN Administration Pain, Mild (Pain Scale 1-3) Amlodipine Besylate 10 mg 11/10/20 09:00 Amlodipine Besylate 10 Mg Tablet PO DAILY [facility] Protocol Atorvastatin Calcium 10 mg 11/10/20 09:00 Atorvastatin Calcium 10 Mg Tablet PO DAILY [facility] Docusate Sodium 100 mg 11/10/20 00:43 Docusate Sodium 100 Mg Capsule PO DAILY PRN Constipation Duloxetine HCl 30 mg 11/10/20 09:00 Duloxetine Hcl 30 Mg Capsule.Dr PO DAILY MARLENA Fluticasone Propionate 1 puff 11/10/20 08:00 11/10/20 07:13 Fluticasone Propionate 250 Mcg Blst.W.Dev INHALE 1 puff RBID MARLENA Administration Lactated Ringer's 1,000 mls @ 80 mls/hr 11/10/20 00:45 11/10/20 00:53 Lr IVCONT 80 mls/hr .[id number] MARLENA Administration Ceftriaxone Sodium 1 gm/ 50 mls @ 100 mls/hr 11/10/20 01:00 11/10/20 03:31 Sodium Chloride IV Infused Q24H MARLENA Infusion Morphine Sulfate 4 mg 11/10/20 00:43 Morphine Sulfate 4 Mg/Ml Cartridge IVPUSH Q4H PRN Pain, Severe (Pain Scale 7-10) Ondansetron HCl 4 mg 11/10/20 00:43 Ondansetron Hcl 4 Mg/2 Ml Vial IVPUSH Q8H PRN Nausea and Vomiting Sodium Chloride 3 ml 11/10/20 00:43 11/10/20 07:24 0.9 % Sodium Chloride Flush 3 Ml Syringe IVFLUSH 3 ml QSHIFT MARLENA Administration Labs CBC & Chem 7: 11/10/20 05:43 11/10/20 05:43 Assessment and Plan (1) Right distal ureteral calculus: Status: Acute (2) Acute kidney injury: Status: Acute (3) Pyelonephritis: Status: Acute Assessment and Plan: this is a 75 YO f with hx of left nephrectomy who presents to the hospital with pyelonephriotis and obstructing renal calculus # Pyelonephritis associated with kidney stone that seems passed on repeat imaging - UA +ve, CVA tenderness -continue Ceftriaxone, follow culture # obstructing renal calculus -on repeat CT stone passed, urology is not planning any procedure at this time - pain control # WAYLON - has mild WAYLON - continue IVF, repat lab tomorrow # hypertension - elevated - continue amlodipine # HLD - continue atorvastatin # multiple abnormal cysts found on the abdomen pelvic CT- patient will need further follow with PCP upon discharge for further evaluation of these findings heparin for DVT prophylaxis
[2020-11-10] MEDS: amLODIPine Besylate 10 MG TABLET PO (10:56)
[2020-11-10] MEDS: Atorvastatin Calcium 10 MG TABLET PO (10:57)
[2020-11-10] MEDS: DULoxetine HCl 30 MG CAPSULE.DR PO (10:57)
[2020-11-10] MEDS: Heparin Sodium,Porcine 5,000 UNIT/ML VIAL 5000 UNIT SUBCUT ×2 (10:58→22:07)
--- NOTE | 2020-11-10 11:32 | PC.NURSE ---
aashish more per md order. DTV #1 [id number] oob to br with standby assist. steady on feet. mild tenderness to right flank. tylenol given for headache this morning with good effect
[2020-11-10] MEDS: Morphine Sulfate 4 MG/ML CARTRIDGE IVPUSH (15:00)
--- NOTE | 2020-11-10 16:55 | PC.NURSE ---
Pt zendejas dcd this morning. Voided twice in BR, clear yellow urine. C/o pain to R flank area. Medicated with Morphine IV with good effect. IVF infusing per MD order.
[2020-11-11 03:15] VITALS: BP 147/68; PULSE 72; RESP 14; TEMP 36.7; O2SAT 94
[2020-11-11 07:02] LABS: Anion Gap 13 (12-20); Blood Urea Nitrogen 9 mg/dL (9-16); Calcium 8.8 mg/dL (8.4-10.2); Carbon Dioxide 30 mmol/L (22-29); Chloride 105 mmol/L (96-108); Creatinine Clr Calc Pharmacy 46.4; Estimated Glomerular Filt Rate > 60; Glucose Random 93 mg/dL (60-115); Potassium 3.9 mmol/L (3.3-5.1); Sodium 144 mmol/L (135-145)
[2020-11-11 07:11] VITALS: BP 141/64; PULSE 67; RESP 20; TEMP 36.8; O2SAT 97
[2020-11-11] MEDS: Atorvastatin Calcium 10 MG TABLET PO (07:36)
[2020-11-11] MEDS: amLODIPine Besylate 10 MG TABLET PO (07:36)
[2020-11-11] MEDS: DULoxetine HCl 30 MG CAPSULE.DR PO (07:37)
[2020-11-11] MEDS: Fluticasone Propionate 250 MCG BLST.W.DEV 1 PUFF INHALE (07:42)
[2020-11-11 07:43] VITALS: PULSE 73; O2SAT 93
--- NOTE | 2020-11-11 09:41 | P.DS_ITS ---
DS: Providers Provider Date of Service: 11/11/20 Date of admission: 11/09/20 23:53 Primary care physician: Anastacio Damian MD Consults: 11/10/20 06:34 Consult to Urology Routine Consulting Provider: Jax Castellon III Reason for consultation: ocstructing renal calculus Has provider been notified: Yes DS: Diagnosis Discharge Diagnosis (1) Right distal ureteral calculus: Status: Acute (2) Acute kidney injury: Status: Acute (3) Pyelonephritis: Status: Acute DS: Medications Discharge Medications Home Medications: Home Medications Medication Instructions Recorded Confirmed amlodipine 1 tab PO DAILY 11/09/20 11/09/20 atorvastatin 1 tab PO DAILY 11/09/20 11/09/20 duloxetine 1 cap PO DAILY 11/09/20 11/09/20 fluticasone propionate [Flovent 2 puff INHALATION BID 11/09/20 11/09/20 HFA] DS: Summary Hospital Course Hospital Course: 75-year-old female with past medical history of COPD, HTN, asthma, breast cancer status post lumpectomy, left nephrectomy secondary to cyst that were thought to be tumors, rectal out to be benign, presents to the hospital with complaints of right lower quadrant abdominal pain radiating to the left flank. Patient reports that her symptoms started 1 day prior. Pain is 10/10, associated with nausea, vomiting, decreased oral intake, she has urgency, dysuria, and the feeling that she cannot empty her bladder. Denies any fever or chills. Denies history of any kidney stone, he denies any chest pain, shortness of breath, no diarrhea or constipation although has history of IBS. Has no lower extremity edema. No numbness tingling or weakness. On arrival vitals are significant for temp of 97.5?, pulse rate of 76, respiratory rate of 22, blood pressure of 122/88, satting 100% on room air Labs are significant for WBC count of 12.8, hemoglobin 13.7, BUN of 24, creatinine of 1.7 with no previous baseline to compare, UA that is positive for leukocyte esterase. CT of the abdomen/pelvis showed 3 mm calculus at the right UVJ which has produced moderate right obstructive uropathy with significant perinephric stranding. A 1 cm intermediate density cystic focus at the right kidney. Recommended follow-up with renal protocol MRI with and without contrast. Of 1.3 cm left ovarian cyst, abnormal in a postmenopausal setting pulse follow-up with pelvic ultrasound is recommended Liver imaging also showing multiple liver cyst Urology was consulted by ED and recommended admission to Medicine, NPO and will assess patient in the morning Hospital course: She presented with right flank pain, fever, positive UA. CT of abdoemen showed kidney stone, hydronephrosis and finding consitent with acute pyelonephrititis. She was given IV ceftriaxone and urology recommend NPO and possible intervention if stone did not pass. The next day, repeat CT showed that the stone has passed. SHe had WAYLON (Cretinine of 1.71) that has now resolved (Creatinine 0.81 today 11/11) and I suspect that hydronephrosis will ultimately resolved as well. She no more fever, her pain has signficnatly improved and is tolerating diet. Cultures are negative. Will transition from IV Ceftriaoxone to oral Ceftin for total of 10 days and to follow up with PCP and urologist on outpatient basis. CT of abdomen IMPRESSION: 1. A 3 mm calculus at the right UVJ produces moderate right obstructive uropathy with significant perinephric stranding. 2. A 1 cm intermediate density cystic focus at the right kidney. Recommend follow-up renal protocol MRI with and without contrast on a nonemergent basis. Cystic lesions within the liver could also be assessed at that time. 3. A 1.3 cm left ovarian cyst, abnormal in the postmenopausal setting. Follow-up pelvic ultrasound is advised on a nonemergent basis 4. Small sliding-type hiatal hernia. For the above finding will get US of pelvis, and MRI of kidney and Primary care doctor to follow up on Time Spent with Patient Time attestation: Total time spent providing and/or coordinating discharge services: Discharge coordination time: Greater than 30 minutes Physical Exam Vital Signs: Vital Signs: Last Vital Signs Temp 98.2 F 11/11/20 07:11 Pulse 67 11/11/20 07:11 Resp 20 11/11/20 07:11 BP 141/64 H 11/11/20 07:11 Pulse Ox 97 11/11/20 07:11 Body Mass Index 24.9 Constitutional Awake and Alert, No apparent distress Neck Supple, No lymphadenopathy Cardiovascular RRR, No M/R/G, S1 S2, No S3 S4, No pedal edema Respiratory Lungs clear, No respiratory distress Gastrointestinal Non tender, Non-distended : no flank tenderness Skin No rash Neurological Alert & oriented x3 Psychological Appropriate affect DS: Data Data Completed and Pending Labs on day of discharge: Laboratory Results - last 24 hr 11/11/20 05:46 Sodium 144 Potassium 3.9 Chloride 105 Carbon Dioxide 30 H Anion Gap 13 BUN 9 D Creatinine 0.81 Estim Creat Clear Calc 46.4 Estimated GFR > 60 Random Glucose 93 Calcium 8.8 Preliminary micro results at discharge 11/09/20 20:43 Blood Culture - Preliminary Blood - Venous No growth after 24 hours. 11/09/20 20:25 Blood Culture - Preliminary Blood - Venous No growth after 24 hours. Discharge Plan Discharge Anticipated Discharge Date/Time: 11/11/20 09:38 Patient Disposition: Home, Self-Care Discharge Diagnosis: Kidney stone, UTI, hydronephrosis, Referrals: Anastacio Damian MD [Primary Care Provider] - 1 Week Discharge Medications: New cefuroxime axetil 500 mg tablet 500 mg PO BID 7 Days Qty: 14 RF: 0 oxycodone 5 mg tablet 5 mg PO Q6H PRN (Reason: pain (scale score 7-10)) Qty: 7 RF: 0 Continued atorvastatin 10 mg tablet 1 tab PO DAILY RF: 0 amlodipine 10 mg tablet 1 tab PO DAILY RF: 0 Flovent HFA 220 mcg/actuation HFA aerosol inhaler 2 puff inhalation BID RF: 0 duloxetine 30 mg capsule,delayed release(DR/EC) 1 cap PO DAILY RF: 0 Discharge Orders: Discharge Order (Routine); Ordered 11/11/20 Ordered By: Rich Lazo Diet: advance to usual diet Activity on Discharge: As tolerated Stand Alone Forms: Patient Portal Discharge page Other Ambulatory Orders: MR kidney wo/w con (Routine) Timeframe: 2 Weeks Facility: [facility] - Location: MRI Ordered By: Rich Nielson US pelvic complete (Routine) Timeframe: 2 Weeks Facility: [facility] - Location: Ultrasound Ordered By: Rich Nielson Care Plan Goals: Full recovery from kidney stone and kidney infection. Health Concerns: Kidney stone kidney infection. Plan of Treatment: Take cefuroxime (Ceftin) as directed and follow up with her primary care doctor as well as a urologist on outpatient basis. Assessment: Kidney stones/kidney infection that has improved and that should follow-up on outpatient basis.
--- NOTE | 2020-11-11 09:50 | MHC.CM.PN ---
pt dcd no skilled services ordered by
== END 2020-11-11 12:55 | disposition home or self-care (01) | DRG 690 ==
LOC: HO.ED 23:40 → HO.EDOVER 11-10 00:20 → HO.IMC 11-10 00:57
PROVIDERS: Admitting Provider Internal Medicine; Emergency Provider Emergency Medicine Emergency Medical Services; PCP Internal Medicine; Visit Provider Internal Medicine
DX: N10 Acute pyelonephritis (principal); N20.1 Calculus of ureter; N17.9 Acute kidney failure, unspecified; I10 Essential (primary) hypertension; E78.5 Hyperlipidemia, unspecified; N28.1 Cyst of kidney, acquired; N83.202 Unspecified ovarian cyst, left side; Z20.822 Contact with and (suspected) exposure to COVID-19; Z90.5 Acquired absence of kidney; Z88.6 Allergy status to analgesic agent; Z79.899 Other long term (current) drug therapy
CPT/HCPCS: 36415; 74176; 80048; 80053; 80076; 81001; 81003; 83690; 85025; 87040; 87086; 87635; 96374; 96375; 99285; J0696; J1170; J2270; J2405

== ENCOUNTER 2021-02-21 09:25 | Day surgery (SDC) | payer MEDICARE, SELFPAY ==
[2021-02-18 08:34] VITALS: BMI 23.8
--- NOTE | 2021-02-20 10:33 | HO.ANESPROP2 ---
Documented by User: Erica Esqueda 02/20/21 10:35 HPI - Anesthesia Eval Consult details Narrative: 76yo F for Colonoscopy PMFSH Active Problems Active Problems: All Active Problems (Updated 11/19/20 @ 00:01 by Santiago Vazquez) Kidney cyst, acquired (Acute) Ovarian cyst (Acute) Pyelonephritis (Acute) Past Medical History Medical History Asthma Breast cancer COPD (chronic obstructive pulmonary disease) HTN (hypertension) IBS (irritable bowel syndrome) Venous malformation Surgical History Surgical History H/O left nephrectomy H/O: hysterectomy History of appendectomy Social History Social History Household Members: Spouse Housing: House Do you presently have visiting nurse or other home services: No Alcohol intake: never Patient Tobacco Use Status: Never used Tobacco Second Hand Smoke Exposure: No Use of substances other than those prescribed or required for medical reasons: No Are you DNR?: No Advance Directives: No Advance Directives Information Provided: Yes service: No Current occupational status: employed Meds Allergies Allergy/AdvReac Type Severity Reaction Status Date / Time amoxicillin Allergy Unknown Unknown Verified 02/17/21 15:50 bee pollen [bee stings] Allergy Unknown Unknown Verified 02/17/21 15:50 ibuprofen AdvReac Intermediate Palpitation Verified 02/17/21 15:50 s Home Medications Medication Instructions Recorded Confirmed Last Taken Type amlodipine 10 mg tablet 1 tab PO DAILY 11/09/20 02/17/21 Unknown History atorvastatin 10 mg tablet 1 tab PO DAILY 11/09/20 02/17/21 Unknown History duloxetine 30 mg capsule,delayed 1 cap PO DAILY 11/09/20 02/17/21 Unknown History release fluticasone propionate 220 2 puff INHALATION BID 11/09/20 02/17/21 Unknown History mcg/actuation HFA aerosol inhaler (Flovent HFA) Vitamin D-3 with Aloe 1,000 mg PO DAILY 02/17/21 02/17/21 Unknown History famotidine 20 mg tablet (Pepcid) 20 mg PO BEDTIME 02/17/21 02/17/21 Unknown History Exam Exam Date and Time: February 20, 2021 1033 Height,Weight and Vital Signs: Height 4 ft 11.75 in Weight 54.885 kg Pertinent Lab Results Pertinent Lab Results: Laboratory Tests 11/10/20 11/11/20 05:43 05:46 WBC 12.1 H Hgb 11.5 L Hct 34.3 L Plt Count 272 Sodium 144 Potassium 3.9 Chloride 105 Carbon Dioxide 30 H BUN 9 D Creatinine 0.81 Assessment and Plan Assessment Anesthesia Assessment: Chart Reviewed Documented by User: Christie Luke 02/21/21 11:08 [facility] Past Medical History Medical History Asthma Breast cancer COPD (chronic obstructive pulmonary disease) HTN (hypertension) IBS (irritable bowel syndrome) Venous malformation Functional capacity: independent ambulation Patient : No Family History Family history of problems with anesthesia: No Surgical History Surgical History H/O left nephrectomy H/O: hysterectomy History of appendectomy Social History Social History Household Members: Spouse Housing: House Do you presently have visiting nurse or other home services: No Alcohol intake: never Patient Tobacco Use Status: Never used Tobacco Second Hand Smoke Exposure: No Use of substances other than those prescribed or required for medical reasons: No Are you DNR?: No Advance Directives: No Advance Directives Information Provided: Yes service: No Current occupational status: employed Meds Allergies Allergy/AdvReac Type Severity Reaction Status Date / Time amoxicillin Allergy Unknown Unknown Verified 02/17/21 15:50 bee pollen [bee stings] Allergy Unknown Unknown Verified 02/17/21 15:50 ibuprofen AdvReac Intermediate Palpitation Verified 02/17/21 15:50 s Home Medications Medication Instructions Recorded Confirmed Last Taken Type amlodipine 10 mg tablet 1 tab PO DAILY 11/09/20 02/17/21 Unknown History atorvastatin 10 mg tablet 1 tab PO DAILY 11/09/20 02/17/21 Unknown History duloxetine 30 mg capsule,delayed 1 cap PO DAILY 11/09/20 02/17/21 Unknown History release fluticasone propionate 220 2 puff INHALATION BID 11/09/20 02/17/21 Unknown History mcg/actuation HFA aerosol inhaler (Flovent HFA) Vitamin D-3 with Aloe 1,000 mg PO DAILY 02/17/21 02/17/21 Unknown History famotidine 20 mg tablet (Pepcid) 20 mg PO BEDTIME 02/17/21 02/17/21 Unknown History Exam Airway TM Dist: >3cm Neck ROM: Full Denture: Upper Heart: RRR Lungs: CTA Assessment and Plan Final Anesthetic Review Family History of Problems with Anesthesia: No
[2021-02-21 09:52] VITALS: BP 138/70; PULSE 99; RESP 20; TEMP 36.3; O2SAT 97; BMI 23.6
[2021-02-21] MEDS: Lactated Ringers 1,000 ML 100 ML IVCONT (10:04)
--- NOTE | 2021-02-21 10:46 | MHC.SHP ---
Pre-Procedural Eval Section A Date of Service: 02/21/21 Section B Chief Complaint: screening Details of Present Illness: screening Relevant Family History (Specify if Yes): No Relevant Social History: None Present Medications: see Short Stay Collaborative assessment Medical History: No relevant PMH History of Previous Operations: No relevant previous surgery Allergies: Allergies Allergy/AdvReac Type Severity Reaction Status Date / Time amoxicillin Allergy Unknown Unknown Verified 02/17/21 15:50 bee pollen [bee stings] Allergy Unknown Unknown Verified 02/17/21 15:50 ibuprofen AdvReac Intermediate Palpitation Verified 02/17/21 15:50 s Review of Systems Sugical H&P ROS: Negative: Constitution, Cardiovascular, Respiratory, Neurological, Psychiatric, Hem-Onc, Allergic/Immunologic, Gastrointestinal, Genitourinary, Musculoskeletal, Integumentary, Endocrine and Eyes/Ears/Nose/Throat Exam Surgical H&P Exam: Normal: HEENT, Normal: Heart, Normal: Lungs, Normal: Extremities, Normal: Abdomen, Normal: Skin and Normal: Neurological Plan I have reviewed the history and physical and performed a pertinent physical examination on my patient. No changes have occurred unless specified.
[2021-02-21 11:16] VITALS: BP 93/39; PULSE 80; RESP 16; TEMP 36.2; O2SAT 96
--- NOTE | 2021-02-21 11:21 | OP_ITS ---
SURGEON: Nawaf Turner MD INDICATIONS: Colon cancer screening and prior history of adenomatous colon polyps. PREOPERATIVE DIAGNOSIS: POSTOPERATIVE DIAGNOSIS: PROCEDURE PERFORMED: Colonoscopy to the terminal ileum with snare polypectomy. ESTIMATED BLOOD LOSS: COMPLICATIONS: ANESTHESIA: ASSISTANTS: SPECIMENS: MEDICATIONS: Monitored anesthesia care. DESCRIPTION OF PROCEDURE: History and physical performed. The risks and benefits of the procedure were explained to the patient. Informed consent was obtained. The patient was placed in the left lateral decubitus position. A digital rectal exam was performed and was found to be normal. The Olympus pediatric video colonoscope was introduced into the rectum and advanced to the cecum without difficulty. The cecum was identified by transillumination, palpation, and identification of ileocecal valve. Examination was performed and the scope was removed. She tolerated the procedure well and was taken to recovery area in stable condition. FINDINGS: The terminal ileum was normal. The visualized colonic mucosa was normal. The quality of the prep was good. Three polyps were identified and removed with a snare. All were less than 10 mm. These were located at 70 cm, 50 cm, and 30 cm. Retroflexed examination was normal. Internal hemorrhoids were noted. IMPRESSION: Colon polyps. RECOMMENDATION: Follow up biopsy results. MD GERMAIN Jaffe/ERIC / [id number]
[2021-02-21 11:30] VITALS: BP 110/53; PULSE 78; RESP 16; TEMP 36.2; O2SAT 98
--- NOTE | 2021-02-21 12:22 | HO.POSTANES ---
Post Anesthesia Evaluation Post Anesthesia Evaluation Vital Signs: Vital Signs Temp Pulse Resp BP Pulse Ox 02/21/21 11:30 97.2 F 78 16 110/53 L 98 02/21/21 11:16 97.2 F 80 16 93/39 L 96 02/21/21 09:52 97.4 F 99 20 138/70 97 Anesthesia: Monitored Mental Status: Awake Pain Control: Satisfactory Nausea/Vomiting: None Anesthesia-Related Issues: No Anes. Related Issues
== END 2021-02-21 12:49 | disposition home or self-care (01) ==
PROVIDERS: PCP Internal Medicine; Visit Provider Internal Medicine Gastroenterology
PROC: 0DJD8ZZ Inspection of Lower Intestinal Tract, Via Natural or Artificial Opening Endoscopic (ICD-10-PCS; CPT 45378; principal; 2021-02-21 10:40)
DX: Z12.11 Encounter for screening for malignant neoplasm of colon (principal); Z86.010 Personal history of colon polyps; D12.4 Benign neoplasm of descending colon; D12.5 Benign neoplasm of sigmoid colon; K58.2 Mixed irritable bowel syndrome; K21.9 Gastro-esophageal reflux disease without esophagitis; J44.9 Chronic obstructive pulmonary disease, unspecified; M81.0 Age-related osteoporosis without current pathological fracture; I10 Essential (primary) hypertension; Z79.51 Long term (current) use of inhaled steroids; Z88.0 Allergy status to penicillin; Z88.8 Allergy status to other drugs, medicaments and biological substances; Z85.3 Personal history of malignant neoplasm of breast
CPT/HCPCS: 45385; 88305

== ENCOUNTER → 2022-06-18 12:49 | Outpatient (BNVA) | payer MEDICARE, SELFPAY | PROVIDERS: PCP Internal Medicine; Visit Provider Surgery | DX: K64.8 Other hemorrhoids (principal) | CPT/HCPCS: 46600; 99202 ==

== ENCOUNTER 2024-04-04 15:50 | Outpatient (REF) | payer MEDICARE, SELFPAY ==
--- NOTE | ~2024-04-04 | CT_ITS ---
EXAMINATION: CT ABDOMEN AND PELVIS WITH CONTRAST CLINICAL INFORMATION: ABDOMINAL PAIN COMPARISON: CT abdomen/pelvis 11/10/2020 TECHNIQUE: Multidetector volumetric images were obtained from the superior aspect of the liver through the pubic symphysis following administration 85 mL of Omnipaque 350 intravenous contrast. Sagittal and coronal reformatted images were obtained on the technologist's workstation. Oral contrast: No This CT examination was performed using dose optimization techniques as appropriate, variously including the following: *Automated exposure control *Adjustment of mA and/or kV according to patient size (this includes techniques or standardized protocols for targeted exams where dose is matched to indication/reason for exam; i.e. extremities or head) *Use of iterative reconstruction technique DLP: 423 mGy-cm FINDINGS: LUNG BASES: Stable 0.5 cm pleural-based right middle lobe pulmonary nodule unchanged since 2020 and likely benign. No pleural effusion. Normal-sized heart without pericardial effusion. LIVER, GALLBLADDER, AND BILIARY TREE: Stable scattered well-circumscribed hypodense lesions favored to represent simple hepatic cysts. The liver is normal in size, shape, and attenuation. No biliary ductal dilatation is present. The gallbladder is unremarkable with no evidence of radiopaque gallstones, gallbladder wall thickening, or obvious pericholecystic inflammatory changes. PANCREAS: Unremarkable. SPLEEN: Unremarkable. ADRENAL GLANDS: Normal right adrenal gland. Left adrenal gland is surgically absent. KIDNEYS AND URETERS: Status post left nephrectomy. The right kidney has normal in size, shape, and attenuation. No hydronephrosis, hydroureter, or calculi seen. No perinephric stranding. BLADDER: Unremarkable. GASTROINTESTINAL TRACT: The small and large bowel are nondilated. Mild to moderate sigmoid diverticulosis without evidence of acute diverticulitis. The appendix is not definitively seen, however there is no right lower quadrant stranding to suggest acute appendicitis. ABDOMINAL WALL: No significant hernia is appreciated. LYMPH NODES: Normal. VASCULAR: Unremarkable. PELVIC VISCERA: Status post vasectomy. No adnexal masses. OSSEOUS STRUCTURES: No acute or suspicious osseous abnormality. Grade 1 anterolisthesis of L4 on L5, as before. There are multilevel thoracolumbar spondylosis. CT/CT abdomen pelvis w IV con IMPRESSION: 1. No acute abnormality within the abdomen or pelvis. 2. Status post left nephrectomy. 3. Mild to moderate sigmoid diverticulosis without evidence of acute diverticulitis. Fleischner guidelines were followed. Electronically signed by: Helene Hendricks DO 04/20/2024 01:21 PM EDT RP
[2024-04-04] MEDS: iohexoL 350 MG/ML 100 ML INFUS..BTL IV (17:18)
== END 2024-04-04 15:51 | disposition home or self-care (01) ==
LOC: HO.CT 15:50
PROVIDERS: PCP Internal Medicine; Visit Provider Internal Medicine Gastroenterology
DX: R10.84 Generalized abdominal pain (principal)
CPT/HCPCS: 74177; Q9967

== ENCOUNTER 2024-10-10 19:00 | Emergency (ER) | payer MEDICARE, SELFPAY ==
--- NOTE | ~2024-10-10 | XR_ITS ---
CLINICAL HISTORY: trauma 3 view left foot Comparison: None Findings: No fractures or dislocations. Moderate midfoot spurring. Moderate-sized plantar calcaneal spur. No ankle effusion. No radiopaque foreign body. IMPRESSION: 1. No acute findings. Moderate DJD. This document has been electronically signed by: Estelle Alberto MD on 10/10/2024 20:06:36
[2024-10-10 19:30] VITALS: BP 138/92; PULSE 95; RESP 16; TEMP 36.1; O2SAT 98; BMI 23.2
--- NOTE | 2024-10-10 19:31 | ED.GENADULT ---
HPI - General Adult General Chief complaint: Fall Stated complaint: Fall Time Seen by Provider: 10/10/24 23:04 Source: patient Mode of arrival: ambulatory Limitations: no limitations History of Present Illness ED Provider: HPI narrative: Patient apparently tripped and fell about 4 steps while falling she scraped her right leg comes here with a skin avulsion of the right paredes and small avulsion of the left paredes I am also complaining of left ankle pain with swelling no head injury no loss of consciousness no other injuries patient is not on any on any blood thinner patient ambulatory as such Related Data Home Medications ?Medication ?Instructions ?Recorded ?Confirmed amlodipine 10 mg tablet 1 tab PO DAILY 11/09/20 06/18/22 atorvastatin 10 mg tablet 1 tab PO DAILY 11/09/20 06/18/22 duloxetine 30 mg capsule,delayed 1 cap PO DAILY 11/09/20 06/18/22 release fluticasone propionate 220 2 puff inhalation BID 11/09/20 06/18/22 mcg/actuation HFA aerosol inhaler (Flovent HFA) Vitamin D-3 with Aloe 1,000 mg PO DAILY 02/17/21 06/18/22 famotidine 20 mg tablet (Pepcid) 20 mg PO BEDTIME 02/17/21 06/18/22 Previous Rx's ?Medication ?Instructions ?Recorded cefuroxime axetil 500 mg tablet 500 mg PO BID 7 days #14 tabs 11/11/20 hydrocortisone acetate 25 mg 25 mg FL BID PRN hemorrhoids #24 ea 06/18/22 rectal suppository (Anucort-HC) cephalexin 500 mg capsule 500 mg PO QID 7 days #28 caps 10/11/24 Allergies Allergy/AdvReac Type Severity Reaction Status Date / Time amoxicillin Allergy Unknown Unknown Verified 10/10/24 19:35 bee pollen [bee stings] Allergy Unknown Unknown Verified 10/10/24 19:35 ibuprofen AdvReac Intermediate Palpitation Verified 10/10/24 19:35 s Review of Systems Review of Systems: Yes all other systems are reviewed and are negative PMFSH Past Medical History Medical History Hemorrhoids with complication IBS (irritable bowel syndrome) COPD (chronic obstructive pulmonary disease) Asthma HTN (hypertension) Venous malformation Breast cancer Surgical History H/O: hysterectomy H/O left nephrectomy History of appendectomy Social History Social History Household Members: Spouse Housing: House Do you presently have visiting nurse or other home services: No Alcohol intake: never Patient Tobacco Use Status: Never used Tobacco Smoked in Last 30 Days: No Second Hand Smoke Exposure: No Use of substances other than those prescribed or required for medical reasons: No Advance Directives: Yes Advance Directives Information Provided: Yes Advance Directives on File: No Do you have a plan to hurt others: No Plan service: No Current occupational status: employed Physical Exam ED Vital Signs: Vital Signs - 24 hr 10/10/24 19:30 10/11/24 00:44 10/11/24 00:51 Temperature 97.0 F 98.9 F 98.9 F Pulse Rate 95 90 90 Respiratory Rate 16 16 16 Blood Pressure 138/92 H 147/90 H 147/90 H Pulse Oximetry 98 99 99 Oxygen Delivery Method Room Air Room Air Room Air BMI result Body Mass Index 23.2 Appearance: Alert. Oriented X3. No acute distress. Eyes: PERRLA, No Nystagmus HEENT: Pharynx normal. Oral Mucosa moist atraumatic normocephalic Neck: Normal inspection. Neck supple. No midline tenderness CVS: Normal heart rate and rhythm. Pulses normal. Respiratory: No respiratory distress. Equal air entry bilateral, no wheezing/rales/rhonchi Abdomen: Soft and nontender. Bowel sounds are present, no mass palpable, no CVA tenderness Skin: Skin warm and dry. Normal skin color. Normal skin turgor. Extremities: No lower extremity edema. No calf tenderness skin avulsion of the left paredes area left ankle slight swelling of the lateral malleolus Neuro: Oriented X 3. No motor deficit. No sensory deficit.No cerebellar signs , cranial nerves II-XII intact Course Course Course Narrative: This is a rapid medical exam performed by Yvette Castaneda PA-C. Patient is a 79-year-old female who presents after mechanical fall. Patient states she has tripped and fell outside, landing on her knees, she has laceration over right anterior paredes with bilateral skin tears. Patient's primary complaint is for left lateral foot pain. She is ambulatory. We will obtain an x-ray, tetanus is up-to-date, she is stable and can return to the waiting room pending her full medical assessment. She will require lack repair. Medications Administered Discontinued Medications Generic Name Dose Route Start Last Admin Trade Name Jagdish PRN Reason Stop Dose Admin Acetaminophen 650 mg 10/11/24 00:36 10/11/24 00:41 Acetaminophen 325 Mg Tablet PO 10/11/24 00:37 650 mg ONCE ONE Administration Cephalexin HCl 500 mg 10/11/24 00:36 10/11/24 00:40 Cephalexin 500 Mg Capsule PO 10/11/24 00:37 500 mg ONCE ONE Administration Procedures Laceration Laceration 1: Site: lower extremity Side (If applicable): left Size (cm): 4 Description: flap Depth: simple, single layer Pre-repair: deep structures intact Skin layer closed with: other (Steri-Strips) Medical Decision Making Medical Decision Making MDM Narrative: Patient with skin avulsion on the left paredes which were fairly approximated using Steri-Strips local dressing applied patient up-to-date in tetanus shot will give cephalexin as prophylaxis patient is ambulatory in the ER Independent Interpretation I performed an independent interpretation of an: Plain X-Ray Radiology Impression Discussion of test interpretation with radiology: I have reviewed the radiologist's reading. Radiologist Impression: Soft tissue swelling no fracture Discharge Plan Discharge Clinical Impression: Avulsion of skin of right lower leg, Ankle sprain Patient Disposition: Home, Self-Care Instructions: Ankle Sprain (ED), Skin Avulsion (ED) Additional Instructions: Local care of the wound as advised Tylenol for the pain Follow with your PCP Antibiotic as prescribed for prophylaxis for infection Prescriptions: New cephalexin 500 mg capsule 500 mg PO QID 7 Days Qty: 28 0RF No Action atorvastatin 10 mg tablet 1 tab PO DAILY amlodipine 10 mg tablet 1 tab PO DAILY Flovent HFA 220 mcg/actuation HFA aerosol inhaler 2 puff inhalation BID duloxetine 30 mg capsule,delayed release(DR/EC) 1 cap PO DAILY cefuroxime axetil 500 mg tablet 500 mg PO BID 7 Days Qty: 14 0RF Vitamin D-3 with Aloe 1,000 mg PO DAILY famotidine [Pepcid] 20 mg Tablet 20 mg PO BEDTIME hydrocortisone acetate [Anucort-HC] 25 mg suppository 25 mg FL BID PRN (Reason: hemorrhoids) Qty: 24 0RF Interventions: ED Discharge Assessment Last Done: 10/11/24 00:51 Discharge Date/Time: 10/11/24 01:04 Print Language: Georgian
[2024-10-11] MEDS: cephALEXin 500 MG CAPSULE PO (00:40)
[2024-10-11] MEDS: Acetaminophen 325 MG TABLET 650 MG PO (00:41)
[2024-10-11 00:44] VITALS: BP 147/90; PULSE 90; RESP 16; TEMP 37.2; O2SAT 99
[2024-10-11 00:51] VITALS: BP 147/90; PULSE 90; RESP 16; TEMP 37.2; O2SAT 99
== END 2024-10-11 01:04 | disposition home or self-care (01) ==
PROVIDERS: Emergency Provider Internal Medicine; PCP Nurse Practitioner Family
DX: S81.801A Unspecified open wound, right lower leg, initial encounter (principal); S93.401A Sprain of unspecified ligament of right ankle, initial encounter; W01.0XXA Fall on same level from slipping, tripping and stumbling without subsequent striking against object, initial encounter; Y93.9 Activity, unspecified; Y92.9 Unspecified place or not applicable; Y99.9 Unspecified external cause status
CPT/HCPCS: 12002; 73630; 99283; 99284

== ENCOUNTER → 2024-10-10 19:31 | Outpatient (BNV) | payer MEDICARE, SELFPAY | PROVIDERS: PCP Nurse Practitioner Family; Visit Provider Student in an Organized Health Care Education/Training Program | DX: M19.072 Primary osteoarthritis, left ankle and foot (principal); M77.32 Calcaneal spur, left foot | CPT/HCPCS: 73630 ==

== ENCOUNTER 2025-05-11 12:56 | Outpatient (REF) | payer MEDICARE, SELFPAY ==
--- OUTSIDE RECORDS SUMMARY | 2024-06-22 09:35 | XMS_ITS ---
Author Organization [facility] Address [address] [place] [address] Care Team Providers Care Material Carrier Name Role Phone Mickey Vazquez Primary Care Provider UnavailNawaf Garcia Jr REASON FOR VISIT IBS , gerd Encounters Encounter Location Date Provider Diagnosis [facility] [address] [place] [address] 06/22/2024 Nawaf Turner Jr Plan Of Treatment Next Appt Details Provider Name:Nawaf paulson Jr, 11/29/2025 01:15:00 PM, [address], [address], [place], [address], Progress Notes * NANIDecember EDOB: [birth year] (80 yo F)Acc No.[id number]:06/22/2024 Progress Notes Patient: Margot KATELIN December Provider: Harpreet Turner MD :1945 A ge:79 Y S ex:Female Date:06/22/2024 Address:[address] [place] [address] [id number] Pcp:Mickey Vazquez Subjective: * Chief Complaints: * 1 . IBS , gerd. * Medical History: Objective: * Vitals: Assessment: Plan: * Treatment: * * The named appointment provid er may or may not be the originator of this progress note, and it is not deemed complete until electronically signed by the appointment provider. Sign off status: Pending * Provider: Harpreet Turner MD Date: 1 08/23/2023 Generated for Eben tim/Amina/Kasey on: 02:54 PM EDT
--- NOTE | ~2025-05-11 | CT_ITS ---
EXAMINATION: CT ABDOMEN PELVIS WITH IV CONTRAST HISTORY: ABDOMINAL PAIN COMPARISON: Comparison is made with the prior examination dated 04/04/2024. TECHNIQUE: CT scan of the abdomen and pelvis was performed following administration of 85 mL Omnipaque 350 using standard departmental protocol. Coronal and sagittal reformatted images were generated and reviewed. The patient received oral contrast material. This CT exam was performed with one or more of the following dose reduction techniques: automated exposure control, adjustment of the mA and/or kV according to patient size, use of iterative reconstruction technique. DLP: 449 mGy-cm FINDINGS: LOWER CHEST: The visualized lung bases are clear. There is no pleural effusion. CARDIOVASCULATURE: The heart is normal in size. There is no pericardial effusion. LIVER: The liver is normal in size and contour. Multiple cysts are again noted in the liver, the largest of which is in the right lobe measuring 1.7 cm. The hepatic and portal veins are patent. GALLBLADDER / BILE DUCTS: The gallbladder is unremarkable. There is no intra or extrahepatic biliary ductal dilatation. SPLEEN: The spleen is normal in size. No focal splenic lesion is identified. PANCREAS: The pancreas is unremarkable in appearance. ADRENAL GLANDS: Within normal limits. KIDNEYS/RETROPERITONEUM: The left kidney is surgically absent. No renal calculi are identified. There is no hydronephrosis. No renal masses are identified. LYMPH NODES: No abdominal or pelvic lymphadenopathy. VASCULATURE: The abdominal aorta demonstrates atherosclerotic calcification, but is normal in caliber. MESENTERY/PERITONEUM: No free fluid. No masses. There is no free intraperitoneal gas. STOMACH: The stomach is unremarkable. SMALL BOWEL: The small bowel is normal in caliber. COLON: There is diverticulosis of the sigmoid colon, without evidence of diverticulitis. APPENDIX: The appendix is not seen, however no inflammatory changes are seen adjacent to the cecum. URINARY BLADDER/PELVIC ORGANS: The urinary bladder is collapsed, limiting evaluation. The patient is status post hysterectomy. BONES / SOFT TISSUES: There is degenerative disc disease of the spine. CT/CT abdomen pelvis w IV con IMPRESSION: There is post left nephrectomy. Sigmoid diverticulosis without evidence of diverticulitis. No acute abnormality is identified. Electronically signed by: Chandrakant Liu MD 05/11/2025 03:29 PM EDT RP
--- OUTSIDE RECORDS SUMMARY | 2025-05-11 14:54 | XMS_ITS | Patient Health Record ---
Author Organization [facility] Address [address] [address] Care Team Providers Care Meteorology Teacher Name Role Phone Haley Joshua Primary Care Provider Rosalino Kingston Unavailable [phone] Allergies Allergen (clinical drug ingredient) Drug/Non Drug Allergy documented on EMR Reaction Allergy Type Onset Date Status aspirin Aspirin Unknown Drug Allergy Active ibuprofen Ibuprofen Unknown Drug Allergy Active latex Unknown Drug Allergy Active Reason For Referral No Information Medications Medication SIG (Take, Route, Frequency, Duration) Notes Start Date End Date Status Amitriptyline & Diet Manage Pr 25 MG as directed Orally Active amLODIPine Besylate 10 MG 1 tablet Orall y Once a day; Duration: 30 day(s) Active Gemfibrozil 600 MG 1 tablet Orally Twic e a day; Duration: 30 day(s) Active Irbesartan 150 MG 1 tablet Orally Once a day; Duration: 30 day(s) Active Atorvastatin Calcium 10 MG 1 tablet Oral ly Once a day; Duration: 30 day(s) Active Flovent Diskus 50 MCG/BLIST 1 puff Inhal ation Twice a day Active Vitamin D 1000 UNIT 1 capsule Orally Onc e a day; Duration: 30 day(s) Active Omeprazole 20 MG 1 capsule Orally Onc e a day; Duration: 30 day(s) Active ProAir HFA 108 (90 Base) MCG/ACT 2 puffs as needed Inhalation every 4 hrs Active Problems Problem Type SNOMED Code ICD Code Onset Dates Problem Status W/U Status Risk Notes Problem 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 65 Medicare Preferred [address] [place] [address] [id number] Sammiedecember Self - patient is the insured Medical (General) History Medical History History ICD Code asthma back, hip, knee pain cholesterol cataracts high blood pressure reflux measles mumps chicken pox transfusions Surgical History Surgery Date(Month/Year) kidney surgery 02/2011 tendon repair 2010 neuroma surgery 2008 cataract surgery OD 01/2013
--- OUTSIDE RECORDS SUMMARY | 2025-05-11 14:54 | XMS_ITS | Clinical Summary ---
Author Organization [facility] Address [address] [id number] Care Team Providers Care Assayer Name Role Phone Anastacio Damian Primary Care Provider [phone] Allergies Active Allergy Reactions Criticality Noted Date Comments Amoxicillin Unknown 01/03/2021 Bee Venom Protein (Honey Bee) Anaphylaxis High 11/11/2021 Ibuprofen Unknown,Palpitations 01/03/2021 Nortriptyline Constipation 11/11/2021 constipation Pregabalin Diarrhea 11/11/2021 edema,confusion.di arrhea Venom-Honey Bee Anaphylaxis High 01/03/2021 Medications amLODIPine (NORVASC) 10 mg tablet Take 10 mg by mouth once a day. Active fluticasone propionate (FLOVENT HFA) 220 mcg inhaler Inhale 2 puffs by mouth 2 times a day. Rinse mouth with water after use. Do not swallow. Active vitamin D3 (Vitamin D3) 25 mcg (1,000 unit) capsule Take 1 capsule by mouth once a day. Active DULoxetine DR (CYMBALTA) 30 mg capsule Take 30 mg by mouth once a day. Active albuterol (PROAIR HFA,VENTOLIN HFA) 90 mcg inhaler Inhale 1-2 puffs by mouth every 6 hours as needed for wheezing or shortness of breath. Use with spacer. Active ASHWAGANDHA ROOT EXTRACT ORAL Take by mouth. Activ e peppermint oiL 0.2 mL capsule,delayed release(DR/EC) Take by mouth. Active Active Problems Problem Noted Date Diagnosed Date Diverticulosis 11/11/2021 Overview (11/11/2021): refer colonoscopyct scan Absence of kidney 11/11/2021 Overview (11/11/2021): . 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/11/2021 Overview (11/11/2021): Related to chemotherapy Diverticulitis of colon 11/11/2021 Dysphagia 11/11/2021 Gastric reflux 11/11/2021 Overview (11/11/2021): DR rodriguez addressing;no EGD to date Gastroesophageal reflux disease without esophagi tis 11/11/2021 Hay fever 11/11/2021 Hyperlipidemia 11/11/2021 Hypertension 11/11/2021 Irritable bowel syndrome with diarrhea Lipoma 11/11/2021 Steatosis of liver 11/11/2021 Overview (11/11/2021): ct 2010 Liver cyst 11/11/2021 Overview (11/11/2021): mri 2010 Malignant neoplasm of breast 11/11/2021 Overview (11/11/2021): DIAGNOSIS: Stage IA, grade 3 left-sided carcinoma,1'0 clock, ER/NE negative, HER-2 positive, pT1a pN0, PMX., 09/2014 Negative BRCA testing- pTNM Stage (AJCC 2010, 7th edition): A. Primary tumor: pT1b(m). (staged in conjunction with findings in prior core biopsy specimen ([id number])) B. Regional lymph nodes: pN0(sn).Breast, left upper outer quadrant 5 cm from the nipple, ultrasound guided core needle biopsy: - Infiltrating ductal carcinoma, grade 2. Osteoarthritis of cervical spine 11/11/2021 Osteopenia 11/11/2021 Postnasal drip 11/11/2021 Renal insufficiency 11/11/2021 Calculus of kidney 11/11/2021 Overview (11/11/2021): patienmt advised Bone lesion 10/01/2021 Calcific tendinitis 06/07/2020 Impingement syndrome of shoulder region 06/07/20 Angiodysplasia of colon 10/11/2015 Overview (11/11/2021): colonoscopy september 2015 Multiple pulmonary nodules 07/18/2014 Overview (11/11/2021): stableCT slight increase size too small do PET;recheck [address] abd;refer CT lung Immunizations Immunization Administration Dates Next Due Covid-19, Pfizer, mRNA, Pinal valent, PF 30 mcg/0.3 mL dose (for ages 12 and older) 04/10/2021,09/20/2020,08/30/2020 Family History Medical History Relation Name Comments Diabetes Father Aneurysm Mother Breast cancer Sister Relation Name Status Comments Father Mother Sister Social History Tobacco Use Types Packs/Day Years Used Date Smoking Tobacco: Never Smokeless Tobacco: Never Alcohol Use Standard Drinks/Week Comments Not Currently 0 (1 standard drink = 0.6 oz pur e alcohol) Comments Unknown Sex and Gender Information Value Date Recorded Sex Assigned at Female 11/11/2021 4:19 PM EDT Legal Sex Female 10:17 AM EDT Gender Identity Female 11/11/2021 4:19 PM EDT Sexual Orientation Straight 11/11/2021 4: 19 PM EDT Occupation Industry Job Start Date Job End Date [employer] Not on file Not on file Not on file Last Filed Vital Signs Vital Sign Reading Time Taken Comments Blood Pressure 145/82 11/11/2021 10:24 AM EDT Pulse 92 11/11/2021 10:24 AM EDT Temperature - - Respiratory Rate - - Oxygen Saturation - - Inhaled Oxygen Concentration - - Weight 55.3 kg (122 lb) 11/11/2021 10:24 AM EDT Height 149.9 cm (4' 11 ) 11/11/2021 10:24 AM EDT Body Mass Index 24.64 11/11/2021 10:24 AM EDT Plan of Treatment Health Maintenance Due Date Last Done Comments Basic Metabolic Panel 1945 Hepatitis C Screening 1945 Osteoporosis Screening 01/13/1996 Zoster Vaccines (1 of 2) 09/04/2013 07/10/2013 DTaP,Tdap,and Td Vaccines (1 - Tdap) 06/22/2018 06/21/2018 RSV Vaccine (60+ years old a nd patients) (1 - 1-dose 75+ series) 2021 Alcohol/Substance Use Screening 07/19/2024 Depression Screening and Follow-Up 07/19/2024 Health Care Proxy Review 07/19/2024 Social Drivers of Health Hannah ual Screening 07/19/2024 COVID-19 Vaccine (4 - 2024-2 6 season) 2025 04/10/2021, 09/20/2020, 08/30/2020 Influenza Vaccine (#1) 2025 , 05/01/2020, 04/16/2020, Additional history exists Pneumococcal Vaccine: 50+ Years Completed 5, 07/10/2012 Hepatitis B Vaccines Completed 03/14/2015, 09/25/2014, 08/23/2014 Colon Cancer Screening Discontinued Colonoscopy Discontinued 02/21/2021 Cologuard Discontinued FOBT / Fit Test Discontinued Sigmoidoscopy Discontinued Insurance [employer] REPL[employer] PPO Care Teams Assayer Relationship Specialty Start Date End Date Anastacio Damian [address] [place] [id number] PCP - General Internal Medicine 10/20/21
--- OUTSIDE RECORDS SUMMARY | 2025-05-11 14:54 | XMS_ITS | Clinical Summary ---
Author Organization [facility] Address [address] [place] [address] Care Team Providers Care Environmental Services Associate Name Role Phone Anastacio Damian MD Primary Care Provider [phone] Allergies Active Allergy Reactions Criticality Noted Date Comments Ibuprofen Palpitations 07/17/2024 Pregabalin Nortriptyline Medications atorvastatin (LIPITOR) 10 mg tablet Take 1 tablet (10 mg total) by mouth 1 (one) time each day. Active DULoxetine (CYMBALTA) [address] capsule Take 1 capsule (30 mg total) by mouth 1 (one) time each day. Per pt, she takes 2 in the morning and 1 at night. Active famotidine (PEPCID) 20 mg tablet Take 1 tablet (20 mg total) by mouth 2 (two) times a day. Active amLODIPine (NORVASC) 10 mg tablet Take 1 tablet (10 mg total) by mouth 1 (one) time each day. Active albuterol HFA (PROVENTIL HFA;VENTOLIN HFA) 108 (90 Base) MCG/ACT inhaler Inhale 2 puffs by mouth every 4 (four) hours if needed. Active Advair HFA 115-21 mcg/actuation inhaler 08/08/2024 Active dicyclomine (BENTYL) 20 mg tablet 06/26/2024 Active Active Problems Problem Noted Date Diagnosed Date Allergic rhinitis Anxiety Asthma AVM (arteriovenous malformation) BMCC deficiency (CMS/HCC V24) Cataract Chronic cough Chronic renal insufficiency, stage 3 (moderate) Diverticulitis Fatty liver Gastric reflux Hip pain Hyperlipidemia Hypertension IBS (irritable bowel syndrome) Left ovarian cyst Lipoma Neuropathy Osteoarthritis Osteopenia Tendonitis of long head of biceps brachii of rig ht shoulder Immunizations Immunization Administration Dates Next Due Pfizer SARS-CoV-2 COVID-19, mRNA, LNP-S, preservative free 04/10/2021,09/20/2020,08/30/2020 Surgical History Surgery Date Site/Laterality Comments BREAST BIOPSY PROCEDURE: [place] BIOPSY BREAST OPEN INCISIONAL BREAST LUMPECTOMY 2014 Left PROCEDURE: HISTORICAL BREAST LUMPECTOMY OTHER SURGICAL HISTORY Left PROCEDURE: [place] NEPHRECTOMY W/PRTL URETERECTOMY W/OPEN RIB RESCJ; COMMENT: secondary to large renal cyst, non-cancerous Medical History Medical History Date Comments Hyperlipidemia DX:Hyperlipidemi a Essential hypertension DX:Essent ial hypertension Asthma DX:Asthma Esophageal reflux DX:Esophageal reflux Anxiety state DX:Anxiety state Social History Tobacco Use Types Packs/Day Years Used Date Smoking Tobacco: Never Smokeless Tobacco: Never Alcohol Use Standard Drinks/Week Comments Never 0 (1 standard drink = 0.6 oz pur e alcohol) Comments Unknown Sex and Gender Information Value Date Recorded Sex Assigned at Not on file Legal Sex Female 8:55 PM EDT Gender Identity Not on file Sexual Orientation Not on file Obstetrics History Last Filed Vital Signs Vital Sign Reading Time Taken Comments Blood Pressure 125/68 02/27/2022 11:07 AM EDT Sitting R Arm Pulse 69 02/27/2022 11:07 AM EDT Temperature - - Respiratory Rate - - Oxygen Saturation - - Inhaled Oxygen Concentration - - Weight 54.4 kg (120 lb) 08/10/2024 11:4 3 AM EST Height 151.1 cm (4' 11.5 ) 08/10/2024 1 1:43 AM EST Body Mass Index 23.83 08/10/2024 11:43 AM EST Plan of Treatment Upcoming Encounters Date Type Department Care Team (Late st Contact Info) Description 06/06/2025 11:00 AM EST Office Visit Orthopedic Surgery - [place] [address] [facility] [address] [place] [id number] Estella Stokes PA [address] [facility] [address] [place] [address] Health Maintenance Due Date Last Done Comments Zoster Vaccines (1 of 2) 09/04/2013 07/10/2013 RSV Immunization Adult Patients (1 - 1-dose 75+ series) 2021 Cholesterol Screening (Lipid Panel) 10/17/2021 Falls Risk Assessment 10/17/2021 Hepatitis C Screening 10/17/2021 Medicare Annual Wellness Visit 10/17/2021 Osteoporosis Screening (Bone Density Screening) 10/17/2021 Social Influencers of Health Screening 10/17/2021 Hypertension/CHF/CAD Annual BMP Blood Test 07/17/2024 Depression Screening 07/19/2024 COVID-19 Vaccine (7 - Pfizer risk season) 2025 04/25/2024, 05/06/2023, 04/24/2022, Additional history exists Influenza Vaccine (#1) 2025 , 05/06/2023, 04/24/2022, Additional history exists DTaP,Tdap,and Td Vaccines (2 - Td or Tdap) 06/21/2028 06/21/2018 Pneumococcal Vaccine: 50+ Years Completed 03/06/2015, 07/10/2012 Hepatitis A Vaccines Completed 03/12/2015, 08/23/19 15 Hepatitis B Vaccines Completed 03/14/2015, 09/25/2014, 08/23/2014 HIB Vaccines Aged Out No longer eligi ble based on patient's age to complete this topic HPV Vaccines Aged Out No longer eligi ble based on patient's age to complete this topic IPV Vaccines Aged Out No longer eligi ble based on patient's age to complete this topic MMR Vaccines Aged Out No longer eligi ble based on patient's age to complete this topic Meningococcal ACWY Vaccine Aged Out N o longer eligible based on patient's age to complete this topic Meningococcal B Vaccine Aged Out No l onger eligible based on patient's age to complete this topic RSV Immunization Patients Under 20 months Aged Out No longer eligible based on patient's age to complete this topic Varicella Vaccines Aged Out No longer eligible based on patient's age to complete this topic Insurance BLUE [employer]OSS - [place] MEDICARE ADVANTAGE Care Teams Environmental Services Associate Relationship Specialty Start Date End Date Anastacio Damian MD [address] [facility] [address] [place], [place] PCP - General Internal Medicine 08/25/21
--- OUTSIDE RECORDS SUMMARY | 2025-05-11 14:55 | XMS_ITS | Patient Health Record ---
Author Organization [facility] Address [address] [place] [address] Care Team Providers Care Chemical Worker Name Role Phone Mickey Vazquez Primary Care Provider Nawaf Spann Jr Unavailable [phone] Allergies Allergen (clinical drug ingredient) Drug/Non Drug Allergy documented on EMR Reaction Allergy Type Onset Date Status Bee Sting Unknown Allergy Active amoxicillin Amoxicillin Unknown Drug Allergy Act kody ibuprofen Ibuprofen Unknown Drug Allergy Active Reason For Referral No Information Medications Medication SIG (Take, Route, Frequency, Duration) Notes Start Date End Date Status amLODIPine Besylate 10 MG 1 tablet Orall y Once a day Active DULoxetine HCl 30 MG Oral; Duration: 90 Active Atorvastatin Calcium 10mg Active Probiotic Active Vitamin D 1000mg Act kody ProAir HFA Active Advair HFA 45-21 MCG/ACT 2 puffs Inhalat ion Twice a day Active Doxycycline Hyclate 100 MG Oral; Duration: 10 Days Active Pepcid 20 MG 1 tablet at bedtime as needed Orally Once a day; Duration: 30 day(s) 01/03/2021 Active Dicyclomine HCl 20 MG 1 tablet Orally 2- 4 times a day 06/04/2022 Active Immunizations Vaccine Route Administration Date Status Comme nts Influenza Unknown 05/01/2020 Administered Influenza Unknown 04/18/2022 Administered Influenza Unknown 04/19/2024 Administered Problems Problem Type SNOMED Code ICD Code Onset Dates Problem Status W/U Status Risk Notes Problem Colon cancer screening (779302078) Colon cancer screening (Z12.11) Active confirmed Problem Diverticulitis of colon (879906586) Diverticulitis of large intestine without perforation or abscess without bleeding (K57.32) Active confirmed Problem Irritable bowel syndrome with diarrhea (953654776) Irritable bowel syndrome with diarrhea (K58.0) Active confirmed Problem Generalized abdominal pain (896985993) Generalized abdominal pain (R10.84) Active confirmed Problem Gastroesophageal reflux disease without esophagitis (516944753) Gastroesophageal reflux disease without esophagitis (K21.9) Active confirmed Problem Hemorrhoids without complication (38568516) Hemorrhoids, unspecified hemorrhoid type (K64.9) Active confirmed Problem Dysphagia (61491901) Pharyngoesophageal dysphagia (R13.14) Active confirmed Problem Irritable bowel syndrome (65882977) Irritable bowel syndrome with both constipation and diarrhea (K58.2) Active confirmed Vital Signs Temperature 97.5 degrees Fahrenheit 05/17/2024 Blood pressure diastolic 77 mm Hg 11/16/2024 Height 59.75 in 11/16/2024 Blood pressure systolic 111 mm Hg 11/16/2024 Weight 119 lbs 11/16/2024 BMI 23.43 kg/m2 11/16/2024 Encounters Encounter Location Date Provider Diagnosis [facility] [address] [place] [phone] 05/17/2024 Nawaf Turner Jr Irritable bowel syndrome with both constipation and diarrhea K58.2 and Gastroesophageal reflux disease without esophagitis K21.9 [facility] [address] [place] [phone] 11/16/2024 Nwaaf Turner Jr Irritable bowel syndrome with both constipation and diarrhea K58.2 ; Gastroesophageal reflux disease without esophagitis K21.9 and Hemorrhoids, unspecified hemorrhoid type K64.9 [facility] [address] [place] [phone] 03/26/2025 Nawaf Turner Jr Abdominal pain R10.9 [facility] [address] [place] [phone] 03/28/2025 Nawaf Turner Jr Test [place] [address] 05/17/2024 Nawaf Turner Jr Assessments Encounter Date Diagnosis (ICD Code) Assessment Notes Treatment Notes Treatment Clinical Notes Section Notes 05/17/2024 Gastroesophageal reflux disease without esophagitis (ICD-10 - K21.9) We discussed her symptoms today. We discussed irritable bowel syndrome. We discussed the relationship with stress. She is clearly under significant stress with her husbands illness. We recommended regular use of dicyclomine, and titrating Imodium for her diarrhea. We discussed how to do this. She'll let us know how she's doing a month. Followup will be in 6 months, sooner if necessary. Today's visit was 30 minutes. 05/17/2024 Irritable bowel syndrome with both constipation and diarrhea (ICD-10 - K58.2) Irritable bowel syndrome material was printed We discussed her symptoms today. We discussed irritable bowel syndrome. We discussed the relationship with stress. She is clearly under significant stress with her husbands illness. We recommended regular use of dicyclomine, and titrating Imodium for her diarrhea. We discussed how to do this. She'll let us know how she's doing a month. Followup will be in 6 months, sooner if necessary. Today's visit was 30 minutes. 11/16/2024 Irritable bowel syndrome with both constipation and diarrhea (ICD-10 - K58.2) At this time, xavier landeros appears to be doing well.We discussed gastroesophageal reflux disease today. We discussed diet, lifestyle modifications, and weight management regarding the treatment of reflux. She will continue famotidine. For her IBS she will continue dicyclomine and she can take antidiarrheals if necessary. We discussed care and treatment of hemorrhoids today. If these continue to bother her surgical referral can be made. 03/26/2025 Abdominal pain (ICD-10 - R10.9) 11/16/2024 Gastroesophageal reflux disease without esophagitis (ICD-10 - K21.9) At this time, s he appears to be doing well.We discussed gastroesophageal reflux disease today. We discussed diet, lifestyle modifications, and weight management regarding the treatment of reflux. She will continue famotidine. For her IBS she will continue dicyclomine and she can take antidiarrheals if necessary. We discussed care and treatment of hemorrhoids today. If these continue to bother her surgical referral can be made. 11/16/2024 Hemorrhoids, unspecified hemorrhoid type (ICD-10 - K64.9) At this time, s he appears to be doing well.We discussed gastroesophageal reflux disease today. We discussed diet, lifestyle modifications, and weight management regarding the treatment of reflux. She will continue famotidine. For her IBS she will continue dicyclomine and she can take antidiarrheals if necessary. We discussed care and treatment of hemorrhoids today. If these continue to bother her surgical referral can be made. Plan Of Treatment Pending Test Test Name Order Date BUN 03/26/2025 BUN 02/17/2024 CREATININE 02/17/2024 CREATININE 03/26/2025 LIVER PROFILE 04/22/2011 LIVER PROFILE 02/17/2024 LIVER PROFILE 03/26/2025 AMYLASE 04/22/2011 LIPASE 02/17/2024 LIPASE 03/26/2025 CBC w DIFF 04/22/2011 CBC w/o DIFF 03/26/2025 CBC w/o DIFF 02/17/2024 STOOL WBC 07/22/2016 OVA & PARASITES (O&P) 07/22/2016 CULTURE, STOOL 07/22/2016 CT ABD & PELVIS WITH CONTRAST 02/17/2024 CT ABD & PELVIS WITH CONTRAST 03/26/2025 XR BARIUM SWALLOW-ESOPHAGUS 06/26/2015 XR GI SERIES 04/22/2011 Future Test Test Name Order Date COLONOSCOPY 08/17/2014 COLONOSCOPY 06/26/2015 UPPER GI ENDOSCOPY 09/03/2016 COLONOSCOPY 01/03/2021 Next Appt Details Provider Name:Nawaf paulson , 11/29/2025 01:15:00 PM, [address] [place] [address], [facility] [address], [place], [address], Insurance Providers Payer Name Payer Address Payer Phone Subscriber Number Group Number Insured Name Patient Relationship to Insured Coverage Start Date Coverage End Date [facility] [address] [place], [place] [id number] [phone] [id number] [facility] December Self - patient is the insured Medical (General) History Medical History History ICD Code Colonoscopy 02/21/21, 2 tubular adenomas, followup optional based on age. hypertension elevated cholesterol osteoporosis Gastroesophageal reflux dise ase, EGD 11/27/16, gastritis and fundic gland polyps. 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
[2025-05-11] MEDS: iohexoL 350 MG/ML 100 ML INFUS..BTL IV (15:21)
[2025-05-11] MEDS: Barium Sulfate Oral (Mocha) 450 ML ORAL.SUSP 900 ML PO (15:22)
[2025-05-11 17:34] LABS: Creatinine POC 1.2 mg/dL (0.5-1.4); GFR POC 48
== END 2025-05-11 12:57 | disposition home or self-care (01) ==
LOC: HO.CT 12:56
PROVIDERS: PCP Nurse Practitioner Family; Visit Provider Internal Medicine Gastroenterology
DX: R10.9 Unspecified abdominal pain (principal)
CPT/HCPCS: 74177; 82565; Q9967

== ENCOUNTER → 2025-05-11 13:00 | Outpatient (BNV) | payer MEDICARE, SELFPAY | PROVIDERS: PCP Nurse Practitioner Family; Visit Provider Radiology Diagnostic Radiology | DX: K57.30 Diverticulosis of large intestine without perforation or abscess without bleeding (principal); Z90.5 Acquired absence of kidney | CPT/HCPCS: 74177 ==